=== PATIENT | female | born 2000 | race Caucasian/White ===

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

== ENCOUNTER 2022-02-27 10:15 | Emergency (ER) | payer BC, SELFPAY ==
[2022-02-27 10:37] VITALS: BP 133/91; PULSE 100; RESP 18; TEMP 36.7; O2SAT 96; BMI 37.6
--- NOTE | 2022-02-27 10:41 | HMH.EDUTC ---
[facility] [place]ression: Pilonidal abscess Disposition: Home, Self-Care Condition on Discharge: Good Instructions: Pilonidal Cyst, DI for Pilonidal Cyst Drainage or Removal Additional Instructions: *Start antibiotic(s) immediately and be sure to take as ordered for the FULL length of time although you may be feeling better or start to see improvement in the next 24-48 hours *Monitor closely. Outlined redness so that you can monitor easier. Follow up immediately for new or worsening symptoms including but not limited to redness, swelling, streaking from site fever or chills. *Warm compress 15 minutes 3-4 times day *Never squeeze or pop these on your own. Seek immediate medical attention next time this occurs *Monitor Temp. Tylenol every 4 hours as needed and ibuprofen every 6 hours as needed (as long as your primary care doctor has told you that it is ok to take both. For fever, aches, pain. ER if no less that 101 despite Tylenol and ibuprofen Follow up with your family doctor/primary care physician in the next 48-72 hours if no improvement Call Dr Tomlinson office in General Surgery for appointment for further evaluation and treatment Prescriptions: Sulfamethoxazole/Trimethoprim [Bactrim DS tablet] 1 each PO BID 10 Days #20 tab Transmission Status: Received by [id number] Mupirocin Calcium [Mupirocin 2% Cream 15gm] 1 applicatio TP TID 10 Days #15 gm Transmission Status: Received by [id number] Referrals: Osiris Mota PA [Primary Care Provider] - As needed Solo Morin MD [Staff Physician] - As needed Time of Disposition: 11:08 Medical Decision Making - Archie Inquiry Pt receiving controlled substance: No Archie was queried for this patient: No Vital Signs: 02/27/22 10:37 Temperature 98.0 F Temperature Source Oral Pulse Rate [Left Radial] 100 H Respiratory Rate 18 Blood Pressure [Right Arm] 133/91 H Blood Pressure Mean [Right Arm] 105 02 Sat by Pulse Oximetry 96 Orders (Tests/Meds): ORDERS Category Date Time Status Wound Culture and Gram Stain Stat Micro 02/27/22 10:52 [place] [facility] [place] - General Stated complaint: lower back pain Time Seen by Provider: 02/27/22 10:41 Description of Symptoms (Recalled from Triage Doc. by RN): patient comes in for a bump like place on the lower part of her back. above her crack. patient states it has been going on for 1 week HEENT Symptoms (Recalled from RN notes): No Resp Symptoms (Recalled from RN notes): No Skin Symptoms (Recalled from RN notes): Yes MS Symptoms (Recalled from RN notes): No Functional Status (Recalled from RN notes): wnl - History of Present Illness Provider Complaint: Patient states that she has had a knot like area in the top of her butt crack for about a week States that the area is tender to the touch and hurts when she tries to sit on that side or wipe States that today it was hurting so she came in to get it checked out - Related Data Home Medications Medication Instructions Recorded Confirmed fluoxetine 40 mg capsule 40 mg PO DAILY cap 10/31/21 10/31/21 hydroxyzine HCl 25 mg tablet 25 mg PO ONCE tab 10/31/21 10/31/21 Previous Rx's Medication Instructions Recorded etonogestrel 0.12 mg-ethinyl 1 vag ring VAGINAL Q4W #3 each 10/31/21 estradiol 0.015 mg/24 hr vaginal ring Mupirocin Calcium [Mupirocin 2% 1 applicatio TP TID 10 Days #15 gm 02/27/22 Cream 15gm] Sulfamethoxazole/Trimethoprim 1 each PO BID 10 Days #20 tab 02/27/22 [Bactrim DS tablet] Allergies Allergy/AdvReac Type Severity Reaction Status Date / Time No Known Allergies Allergy Verified 02/27/22 10:40 - Worker's Comp Is this a Worker's Comp case?: No [facility] History - Hepatitis A Screen Attestation statement:: This patient has been screened for Hepatitis A risk factors. I have reviewed the patient's past medical history: Yes Medical History: Reports:: Anxiety, Depression Other Surgeries: Yes: No Previous
[2022-02-27 11:24] VITALS: BP 133/91; PULSE 100; RESP 18; TEMP 36.7
== END 2022-02-27 11:25 | disposition home or self-care (01) ==
PROVIDERS: Emergency Provider Nurse Practitioner; PCP Physician Assistant
DX: L05.01 Pilonidal cyst with abscess (principal); M54.50 Low back pain, unspecified; F32.A Depression, unspecified; F41.9 Anxiety disorder, unspecified; Z82.49 Family history of ischemic heart disease and other diseases of the circulatory system; Z80.9 Family history of malignant neoplasm, unspecified
CPT/HCPCS: 87070; 87077; 87186; 87205; 99213; G0463

== ENCOUNTER → 2022-04-14 08:53 | Outpatient (CLI) | payer BC, SELFPAY ==
[2022-04-17 22:07] LABS: Neisseria gonorrhoeae, NAA Negative (Negative)
== END ==
PROVIDERS: Visit Provider Obstetrics & Gynecology
DX: Z11.3 Encounter for screening for infections with a predominantly sexual mode of transmission (principal)
CPT/HCPCS: 87491; 87591

== ENCOUNTER 2022-06-10 18:00 | Emergency (ER) | payer BC, SELFPAY ==
--- NOTE | 2022-06-10 18:18 | EXP.UTC ---
Discharge Plan Disposition Patient Disposition: Home, Self-Care Condition: Good Prescriptions Prescriptions: New cephalexin 500 mg capsule 500 mg PO QID Qty: 40 0RF No Action hydroxyzine HCl 25 mg tablet 25 mg PO ONCE Label Comments: TAKE 2 TABLETS BY MOUTH EVERY DAY AT BEDTIME fluoxetine 40 mg capsule 40 mg PO DAILY Label Comments: TAKE 1 CAPSULE BY MOUTH ONCE DAILY Referrals Follow up/Referrals: Provider,Referral, [Primary Care Provider] - See instructions Activity Restrictions/Add. Instructions Additional Instructions/Restrictions: Apply warm wet compresses to the affected site three or four times per day for 15 minutes as tolerated. Soaking in a tub of warm epsom salts water a couple times per day would be a good idea too. Take the antibiotics as directed. Follow up with your regular doctor. Follow up with General Surgery. I put in a referral to Dr. Johnson. Please call his office and schedule an appointment for a recheck there. GO TO THE ER FOR ANY WORSENING SYMPTOMS OR CONCERNS Clinical Impressions Clinical Impression: Pilonidal cyst Stand Alone Forms Stand Alone Forms: Work/School Release Instructions Patient Instructions: Pilonidal Cyst Discharge ED Provider: Yefri Walker [facility] General Stated complaint: bump on back Time Seen by Provider: 06/10/22 18:18 History of Present Illness Provider Complaint: She has a history of a pilonidal cyst. She had to have it drained about 4 months ago. she states that it has been fine up until yesterday. It began to be tender and start to swell then. She denies any fever, chills or malaise. Related Data Home Medications Medication Instructions Recorded Confirmed fluoxetine 40 mg capsule 40 mg PO DAILY 10/31/21 04/13/22 hydroxyzine HCl 25 mg tablet 25 mg PO ONCE 10/31/21 04/13/22 Previous Rx's Medication Instructions Recorded cephalexin 500 mg capsule 500 mg PO QID #40 caps 06/10/22 Allergies Allergy/AdvReac Type Severity Reaction Status Date / Time No Known Allergies Allergy Verified 04/13/22 13:14 [facility] Social History Smoking Status: Never smoker alcohol intake: never substance use type: denies use and marijuana current occupational status: student Travel in the last 8 weeks: None household members: family housing: house ROS Obtained: Yes All systems reviewed & no additional complaints except as documented Constitutional Constitutional: Reports system reviewed and no additional complaints, except as documented, Denies chills and Denies fever(s) Eyes Eyes: Denies eye discharge ENT Ears, Nose, Mouth, and Throat: Denies dysphagia, Denies sore throat and Denies throat swelling Cardiovascular Cardiovascular: Denies chest pain and Denies dyspnea Respiratory Respiratory: Denies chest congestion, Denies cough and Denies dyspnea Gastrointestinal Gastrointestingal: Denies abdominal pain, constipation, diarrhea, dysphagia, nausea or vomiting Musculoskeletal Musculoskeletal: Denies arthralgias Integumentary/Breasts Skin/Breast: Reports as per HPI Neurologic Neurologic: Denies paresthesias Allergic/Immunologic Allergic/Immunologic: Denies throat swelling Physical Exam General General appearance: alert and in no apparent distress Head Head exam: atraumatic, normocephalic and normal inspection Eye Eye exam: Present normal appearance, PERRL and EOMI ENT ENT exam: Present normal exam, normal oropharynx, mucous membranes moist, TM's normal bilaterally and normal external ear exam Neck Neck exam: Present normal inspection, full ROM and trachea midline; Absent meningismus or lymphadenopathy Chest Chest inspection: Present normal inspection and symmetric chest wall rise; Absent tenderness Respiratory Respiratory exam: Present normal lung sounds bilaterally; Absent respiratory distress Cardiovascular Cardiovascular exam: Present
[2022-06-10 18:20] VITALS: BP 116/85; PULSE 118; RESP 17; TEMP 37.3; O2SAT 96; BMI 35.7
[2022-06-10 18:37] VITALS: BP 116/85; PULSE 118; RESP 17; TEMP 37.3; O2SAT 96
== END 2022-06-10 18:39 | disposition home or self-care (01) ==
PROVIDERS: Emergency Provider Nurse Practitioner Family
DX: L05.91 Pilonidal cyst without abscess (principal)
CPT/HCPCS: 99212; G0463

== ENCOUNTER 2022-06-12 16:21 | Emergency (ER) | payer BC, SELFPAY ==
[2022-06-12 16:35] VITALS: BP 150/91; PULSE 100; RESP 20; TEMP 36.9; O2SAT 99; BMI 35.4
--- NOTE | 2022-06-12 16:55 | EXP.UTC ---
Discharge Plan Disposition Patient Disposition: Home, Self-Care Condition: Good Prescriptions Prescriptions: No Action hydroxyzine HCl 25 mg tablet 25 mg PO ONCE Label Comments: TAKE 2 TABLETS BY MOUTH EVERY DAY AT BEDTIME fluoxetine 40 mg capsule 40 mg PO DAILY Label Comments: TAKE 1 CAPSULE BY MOUTH ONCE DAILY Kyleena 17.5 mcg/24 hrs (5 yrs) 19.5 mg intrauterine device intrauterine cephalexin 500 mg capsule 500 mg PO QID Qty: 40 0RF Referrals Follow up/Referrals: Dylon Quiñonez MD [Primary Care Provider] - See instructions Activity Restrictions/Add. Instructions Additional Instructions/Restrictions: Continue with warm soaks in warm water and epson salt Continue taking antibiotics as prescribe *Warm compress 15 minutes 3-4 times day *Never squeeze or pop these on your own. Seek immediate medical attention next time this occurs *Monitor Temp. Tylenol every 4 hours as needed and ibuprofen every 6 hours as needed (as long as your primary care doctor has told you that it is ok to take both. For fever, aches, pain. ER if no less that 101 despite Tylenol and ibuprofen ?Follow up with your family doctor/primary care physician in the next 48-72 hours if no improvement Keep appointment with Surgical Clinic tomorrow as scheduled Tyelnol may help with pain Clinical Impressions Clinical Impression: Pilonidal cyst Stand Alone Forms Stand Alone Forms: Work/School Release Instructions Patient Instructions: Pilonidal Cyst, DI for Pilonidal Cyst Drainage or Removal Discharge ED Provider: Penny Rollins [facility] [place] HPI General Stated complaint: Bleeding cyst Mode of Arrival: Ambulatory Source of Information: Patient Limitations: No Limitations Time Seen by Provider: 06/12/22 16:56 Description of Symptoms (Recalled from Triage Doc. by RN): PATIENT C/O CYST TO GLUTEAL AREA. SHE WAS SEEN IN [facility] ON SATURDAY AND GIVEN ANTIBIOTICS. SHE REPORTS THAT AFTER GETTING OUT OF BATHTUB TODAY SHE NOTED BLEEDING/DRAINAGE FROM CYST AND ALSO C/O PAIN TO AREA. SHE STATES SHE DOES HAVE A CONSULT APPOINTMENT WITH SURGERY TOMORROW REGARDING THE CYST HEENT Symptoms (Recalled from RN notes): No Resp Symptoms (Recalled from RN notes): No Skin Symptoms (Recalled from RN notes): Yes MS Symptoms (Recalled from RN notes): No Functional Status (Recalled from RN notes): WNL History of Present Illness Provider Complaint: Patient states that she has been on antibiotics and has been doing soaks in tub of warm water and epson salt States that earlier after getting out of the tub she noticed bloody drainage from the area States that area is sore and hurting and she has been putting a bandage in there to catch the drainage States that she has appointment with Surgical clinic tomorrow for evaluation but wanted to see if she could get something to help with the pain until she sees them tomorrow Related Data Home Medications Medication Instructions Recorded Confirmed fluoxetine 40 mg capsule 40 mg PO DAILY 10/31/21 06/12/22 hydroxyzine HCl 25 mg tablet 25 mg PO ONCE 10/31/21 06/12/22 levonorgestrel 17.5 mcg/24 hrs intrauterine 06/12/22 06/12/22 (5yrs) 19.5mg intrauterine device (Kyleena) Previous Rx's Medication Instructions Recorded cephalexin 500 mg capsule 500 mg PO QID #40 caps 06/10/22 Allergies Allergy/AdvReac Type Severity Reaction Status Date / Time No Known Allergies Allergy Verified 06/12/22 09:53 Worker's Comp Is this a Worker's Comp case?: No [facility] Medical History (Updated 06/12/22 @ 17:09 by Penny Rollins APRN) Anxiety Depression Urinary tract infection Surgical History (Updated 06/12/22 @ 16:53 by Irene Matthews RN) History of tonsillectomy Social History (Updated 06/12/22 @ 16:54 by Irene Matthews RN) Smoking Status: Never smoker alcohol intake: never substance use type: denies use and marijuana current occupational status: student Travel in the last 8 we
[2022-06-12 17:18] VITALS: BP 150/91; PULSE 100; RESP 20; TEMP 36.9; O2SAT 99
== END 2022-06-12 17:41 | disposition home or self-care (01) ==
PROVIDERS: Emergency Provider Nurse Practitioner; PCP Family Medicine
DX: L05.91 Pilonidal cyst without abscess (principal); B95.7 Other staphylococcus as the cause of diseases classified elsewhere; B96.89 Other specified bacterial agents as the cause of diseases classified elsewhere; Z16.11 Resistance to penicillins; Z16.39 Resistance to other specified antimicrobial drug; F41.9 Anxiety disorder, unspecified; F32.A Depression, unspecified; Z87.440 Personal history of urinary (tract) infections
CPT/HCPCS: 87070; 87077; 87186; 87205; 96372; 99212; G0463

== ENCOUNTER 2022-08-30 18:03 | Emergency (ER) | payer BC, SELFPAY ==
[2022-08-30 19:55] VITALS: BP 131/86; PULSE 89; RESP 18; TEMP 36.7; O2SAT 98; BMI 39.5
--- NOTE | 2022-08-30 20:12 | EXP.UTC ---
Discharge Plan Disposition Patient Disposition: Home, Self-Care Condition: Good Prescriptions Prescriptions: New sulfamethoxazole-trimethoprim [Bactrim DS] 800-160 mg Tablet 1 tab PO BID Qty: 20 0RF cephalexin 500 mg capsule 500 mg PO QID Qty: 40 0RF mupirocin 2 % ointment 1 applic topical TID 7 Days Qty: 15 0RF No Action hydroxyzine HCl 25 mg tablet 25 mg PO ONCE Label Comments: TAKE 2 TABLETS BY MOUTH EVERY DAY AT BEDTIME fluoxetine 40 mg capsule 40 mg PO DAILY Label Comments: TAKE 1 CAPSULE BY MOUTH ONCE DAILY Referrals Follow up/Referrals: Brian Tena MD [Staff Physician] - See instructions Provider,MD Cristina [Primary Care Provider] - See instructions Activity Restrictions/Add. Instructions Additional Instructions/Restrictions: Apply warm wet compresses to the affected sites three or four times per day for 15 minutes as tolerated. Take the antibiotics as directed. Follow up with your regular doctor. Call the surgeon and get an appointment. A surgeon can remove this and make it not come back. That is what you need. GO TO THE ER FOR ANY WORSENING SYMPTOMS OR CONCERNS Clinical Impressions Clinical Impression: Pilonidal cyst Stand Alone Forms Stand Alone Forms: Work/School Release Instructions Patient Instructions: Pilonidal Cyst Discharge ED Provider: Yefri Walker [facility] General Stated complaint: bumb on lower back Mode of Arrival: Ambulatory Source of Information: Patient Limitations: No Limitations Time Seen by Provider: 08/30/22 20:12 Description of Symptoms (Recalled from Triage Doc. by RN): PATIENT C/O PAINFUL CYST TO TOP OF BUTTOCK AREA. SHE REPORTS IT HAS BEEN THERE INTERMITTENLY APPROX 9 MONTHS HEENT Symptoms (Recalled from RN notes): No Resp Symptoms (Recalled from RN notes): No Skin Symptoms (Recalled from RN notes): Yes MS Symptoms (Recalled from RN notes): No Functional Status (Recalled from RN notes): WNL History of Present Illness Provider Complaint: She has a history of a pilonidal cyst. She states that over the past few days it has began to swell up and become painful again. She did not f/u with surgery after the last time it was drained 3 months ago. Related Data Home Medications Medication Instructions Recorded Confirmed fluoxetine 40 mg capsule 40 mg PO DAILY Depression 10/31/21 08/30/22 hydroxyzine HCl 25 mg tablet 25 mg PO ONCE Anxiety 10/31/21 08/30/22 Previous Rx's Medication Instructions Recorded cephalexin 500 mg capsule 500 mg PO QID #40 caps 08/30/22 mupirocin 2 % topical ointment 1 applic topical TID 7 days #15 08/30/22 grams sulfamethoxazole 800 1 tab PO BID #20 tabs 08/30/22 mg-trimethoprim 160 mg tablet (Bactrim DS) Allergies Allergy/AdvReac Type Severity Reaction Status Date / Time No Known Allergies Allergy Verified 06/13/22 13:05 Worker's Comp Is this a Worker's Comp case?: No [facility] Disclaimer: The information contained in this section may have been updated after the patient was seen, as this information can be updated by other users. Medical History Anxiety Depression Hypertension Migraine Urinary tract infection Surgical History History of tonsillectomy Social History Smoking Status: Current every day smoker alcohol intake: current substance use type: marijuana current occupational status: student Travel in the last 8 weeks: None household members: family housing: house ROS Obtained: Yes All systems reviewed & no additional complaints except as documented Constitutional Constitutional: Denies chills and Denies fever(s) Eyes Eyes: Denies eye discharge ENT Ears, Nose, Mouth, and Throat: Denies dizziness, Denies otalgia and Denies sore throat Cardiovascular Cardiovascular: Denies jewell
[2022-08-30 20:57] VITALS: BP 131/86; PULSE 89; RESP 18; TEMP 36.7; O2SAT 98
== END 2022-08-30 21:00 | disposition home or self-care (01) ==
PROVIDERS: Emergency Provider Nurse Practitioner Family
DX: L05.91 Pilonidal cyst without abscess (principal)
CPT/HCPCS: 99212; G0463

== ENCOUNTER 2022-09-03 13:02 | Emergency (ER) | payer BC, SELFPAY ==
[2022-09-03 13:55] VITALS: BP 145/88; PULSE 78; RESP 18; TEMP 36.9; O2SAT 98; BMI 39.5
[2022-09-03 14:02] VITALS: BP 145/88; PULSE 78; RESP 18; TEMP 37.1; O2SAT 98
--- NOTE | 2022-09-03 14:51 | EXP.UTC ---
Discharge Plan Disposition Patient Disposition: Home, Self-Care Condition: Good Prescriptions Prescriptions: No Action hydroxyzine HCl 25 mg tablet 25 mg PO ONCE Label Comments: TAKE 2 TABLETS BY MOUTH EVERY DAY AT BEDTIME fluoxetine 40 mg capsule 40 mg PO DAILY Label Comments: TAKE 1 CAPSULE BY MOUTH ONCE DAILY sulfamethoxazole-trimethoprim [Bactrim DS] 800-160 mg Tablet 1 tab PO BID Qty: 20 0RF cephalexin 500 mg capsule 500 mg PO QID Qty: 40 0RF mupirocin 2 % ointment 1 applic topical TID 7 Days Qty: 15 0RF Referrals Follow up/Referrals: Provider,Referral, MD [Primary Care Provider] - See instructions Activity Restrictions/Add. Instructions Additional Instructions/Restrictions: Continue antibiotics as prescribed Follow up with General Surgery for further evaluation and treatment call tomorrow for first available appointment Return if needed Straight to ER if any life threatening symptoms Clinical Impressions Clinical Impression: Pilonidal abscess Instructions Patient Instructions: Pilonidal Cyst, DI for Pilonidal Cyst Drainage or Removal Discharge ED Provider: Penny Rollins [facility] HPI General Stated complaint: cyst on butt, Bleeding Mode of Arrival: Ambulatory Source of Information: Patient Limitations: No Limitations Time Seen by Provider: 09/03/22 14:51 Description of Symptoms (Recalled from Triage Doc. by RN): PATIENT C/O CYST TO BUTTOCK AREA. SHE WAS SEEN SATURDAY FOR IT AND STARTED ON ANTIBIOTIC. SHE STATES SHE WOKE UP THIS MORNING AND IT HAS BUSTED HEENT Symptoms (Recalled from RN notes): No Resp Symptoms (Recalled from RN notes): No Skin Symptoms (Recalled from RN notes): Yes MS Symptoms (Recalled from RN notes): No Functional Status (Recalled from RN notes): WNL History of Present Illness Provider Complaint: Patient has had hx of pilonidal abscess States that she is suppose to follow up with General Surgery and she did in May and wanted a second opinion but never follow up but her mother called today for appointment States that she has been seen several times for it and sometimes they have opened it and sometimes not States that she woke up this morning with it draining States that she wanted something for pain Related Data Home Medications Medication Instructions Recorded Confirmed fluoxetine 40 mg capsule 40 mg PO DAILY Depression 10/31/21 08/30/22 hydroxyzine HCl 25 mg tablet 25 mg PO ONCE Anxiety 10/31/21 08/30/22 Previous Rx's Medication Instructions Recorded cephalexin 500 mg capsule 500 mg PO QID #40 caps 08/30/22 mupirocin 2 % topical ointment 1 applic topical TID 7 days #15 08/30/22 grams sulfamethoxazole 800 1 tab PO BID #20 tabs 08/30/22 mg-trimethoprim 160 mg tablet (Bactrim DS) Allergies Allergy/AdvReac Type Severity Reaction Status Date / Time No Known Allergies Allergy Verified 06/13/22 13:05 Worker's Comp Is this a Worker's Comp case?: No [facility] Disclaimer: The information contained in this section may have been updated after the patient was seen, as this information can be updated by other users. Medical History Anxiety Depression Hypertension Migraine Urinary tract infection Surgical History History of tonsillectomy Social History (Updated 09/03/22 @ 14:01 by Irene Matthews RN) Smoking Status: Current every day smoker alcohol intake: current substance use type: marijuana current occupational status: student Travel in the last 8 weeks: None household members: family housing: house ROS Obtained: Yes All systems reviewed & no additional complaints except as documented and Yes Systems reviewed as appropriate & no additional complaints except as documented Constitutional Constitutional: Reports system reviewed and no additional complaints, except as documented and Reports as p
[2022-09-03 15:29] LABS: UTC Pregnancy Test, Urine Negative (Negative)
== END 2022-09-03 15:54 | disposition home or self-care (01) ==
PROVIDERS: Emergency Provider Nurse Practitioner
DX: L05.91 Pilonidal cyst without abscess (principal)
CPT/HCPCS: 81025; 96372; 99212; G0463

== ENCOUNTER 2023-11-17 18:14 | Emergency (ER) | payer BC, SELFPAY ==
[2023-11-17 18:35] VITALS: BP 136/89; PULSE 84; RESP 19; TEMP 37.2; O2SAT 98; BMI 42.6
[2023-11-17 18:42] LABS: Apearance,Urine Clear (Clear); Color,Urine Yellow (Yellow)
[2023-11-17 18:43] LABS: Bilirubin,Urine Negative (Negative); Blood, Urine Trace (Negative); Glucose,Urine (UA) Negative (Negative); Ketones,Urine Negative (Negative); Protein,Urine Negative (Negative); UTC Leukocyte Esterase,Urine Negative (Negative); UTC Nitrate,Urine Negative (Negative); UTC Pregnancy Test, Urine Negative (Negative); Urobilinogen,Urine 0.2 EU/dl (0.2)
--- NOTE | 2023-11-17 18:57 | ED_ITS ---
Discharge Plan Disposition Patient Disposition: Home, Self-Care Condition: Good Prescriptions Prescriptions: No Action hydroxyzine HCl 25 mg tablet 25 mg PO ONCE Patient Comments: TAKE 2 TABLETS BY MOUTH EVERY DAY AT BEDTIME fluoxetine 40 mg capsule 40 mg PO DAILY Patient Comments: TAKE 1 CAPSULE BY MOUTH ONCE DAILY Referrals Follow up/Referrals: Dylon Quiñonez MD [Primary Care Provider] - See instructions Activity Restrictions/Add. Instructions Additional Instructions/Restrictions: Drink extra fluids with and between meals. If you have difficulty drinking, try very small amounts of water or suck on ice chips. ? Avoid fruit juices, as these do not replace minerals and can actually increase diarrhea. ? Children and adults can use sports drinks to replenish electrolytes. Y elm[place]mon[place] children and infants should use products formulated for children, like oral rehydration solutions. ? Eat food in small amounts and let your stomach recover. ? Get lots of rest. You may feel tired or weak. ? No greasy or fried foods for the next 24-48 hours BRAT diet Bananas Rice Apples and [place] ? Make sure to drink plenty of liquids ? Return if needed ? Straight to ER if any life threatening symptoms ? Follow up with family doctor in the next 48-72 hours if no improvement or any worsening of symptoms Clinical Impressions Clinical Impression: Nausea & vomiting Qualifiers: Vomiting type: unspecified Qualified Code(s): R11.2 - Nausea with vomiting, unspecified Stand Alone Forms Stand Alone Forms: Work/School Release Instructions Patient Instructions: Nausea and Vomiting-Adult Discharge ED Provider: Penny Rollins [facility] General Stated complaint: stomach pain,vomiting Mode of Arrival: Ambulatory Source of Information: Patient Limitations: No Limitations Time Seen by Provider: 11/17/23 18:57 Description of Symptoms (Recalled from Triage Doc. by RN): PATIENT C/O STOMACH ACHES AND VOMITING X 3 DAYS HEENT Symptoms (Recalled from RN notes): No Resp Symptoms (Recalled from RN notes): No Skin Symptoms (Recalled from RN notes): No MS Symptoms (Recalled from RN notes): No Functional Status (Recalled from RN notes): WNL History of Present Illness Provider Complaint: Patient states that for the last 3 days she has had N/V and stomach discomfort States she last vomited last night but this morning her stomach was still upset and she wasnt able to go to work needing a work note States that she does have nausea medication at home and doesnt need any Related Data Home Medications Medication Instructions Recorded Confirmed fluoxetine 40 mg capsule 40 mg PO DAILY Depression 10/31/21 11/17/23 hydroxyzine HCl 25 mg tablet 25 mg PO ONCE Anxiety 10/31/21 11/17/23 Allergies Allergy/AdvReac Type Severity Reaction Status Date / Time No Known Allergies Allergy Verified 06/13/22 13:05 Worker's Comp Is this a Worker's Comp case?: No [facility] Disclaimer: The information contained in this section may have been updated after the patient was seen, as this information can be updated by other users. Medical History Anxiety Depression Hypertension Migraine Urinary tract infection Surgical History History of tonsillectomy Social History (Updated 09/03/22 @ 14:01 by Irene Matthews RN) Smoking Status: Current every day smoker alcohol intake: current substance use type: marijuana current occupational status: student Travel in the last 8 weeks: None household members: family housing: house ROS Obtained: Yes All systems reviewed & no additional complaints except as documented and Yes Systems reviewed as appropriate & no additional complaints except as documented Constitutional Constitutional: Reports system reviewed and no additional complaints, except as documented, Reports as per HPI and Denies fever(s) ENT Ears, Nose, Mouth, and Throat: Reports system reviewed and no additional complaints, except as documented and Reports as per HPI Cardiovascular Cardiovascular: Reports system reviewed and no additional complaints, except as documented and Reports as per HPI Respiratory Respiratory: Reports system reviewed and no additional complaints, except as documented and Reports as per HPI Gastrointestinal Gastrointestingal: Reports system reviewed and no additional complaints, except as documented, as per HPI, cramping, nausea and vomiting; Denies belching, coffee ground emesis, diarrhea, hematochezia or melena Physical Exam General General appearance: alert and in no apparent distress ENT ENT exam: Present mucous membranes moist Respiratory Respiratory exam: Present normal lung sounds bilaterally; Absent respiratory distress or wheezes Cardiovascular Cardiovascular exam: Present regular rate, normal rhythm and normal heart sounds Abdominal Exam Abdominal exam: Present soft and normal bowel sounds; Absent distention or tenderness Neurological Exam Neurological exam: Present alert, oriented X3 and normal gait Medical Decision Making Archie Inquiry Pt receiving controlled substance: No Archie was queried for this patient: No Vital Signs: 11/17/23 18:35 Temperature 98.9 F Temperature Source Oral Pulse Rate [Left Brachial] 84 Respiratory Rate 19 Blood Pressure [Left Arm] 136/89 Blood Pressure Mean [Left Arm] 104 Blood Pressure Source [Left Arm] Automatic Cuff Blood Pressure Position [Left Arm] Sitting 02 Sat by Pulse Oximetry 98 Oxygen Delivery Method Room Air Lab Data Lab results reviewed: Yes I reviewed the patient's lab results. Lab Results 11/17/23 18:42: Urine Color Yellow, Urine Appearance Clear, Urine pH 6.0, Ur Specific [place] 1.030, Urine Protein Negative, Urine Glucose (UA) Negative, Urine Ketones Negative, Urine Blood Trace, Urine Nitrate Negative, Urine Bilirubin Negative, Urine Urobilinogen 0.2, Ur Leukocyte Esterase Negative, Tst Clinic Negative
[2023-11-17 19:06] VITALS: BP 136/89; PULSE 84; RESP 19; TEMP 37.2; O2SAT 98
== END 2023-11-17 19:14 | disposition home or self-care (01) ==
PROVIDERS: Emergency Provider Nurse Practitioner; PCP Family Medicine
DX: R10.9 Unspecified abdominal pain (principal); R11.2 Nausea with vomiting, unspecified
CPT/HCPCS: 81003; 81025; 99212; 99213; G0463

== ENCOUNTER 2024-06-18 16:26 | Outpatient (CLI) | payer BC, SELFPAY ==
[2024-06-18 17:00] LABS: Basophils % 0.3 % (0.1-2.0); Eosinophils # 0.1 K/mm3 (0.0-0.4); Eosinophils % 0.9 % (0.1-12.0); Hematocrit 39.7 % (37.0-47.0); Lymphocytes # 1.9 K/mm3 (0.7-4.5); Lymphocytes % 20.8 % (10-50); Mean Corpuscular HGB Conc 32.7 g/dL (31.8-35.4); Mean Platelet Volume 8.1 fl (7.4-10.4); Monocytes # 0.4 K/mm3 (0.1-1.0); Monocytes % 4.3 % (1.7-9.3); Neutrophils # 6.9 K/mm3 (1.8-7.8); Neutrophils % 73.7 % (37.0-80.0); Platelet Count 311 K/mm3 (142-424); Red Blood Count 4.18 M/mm3 (4.20-5.40); Red Cell Distribution Width 13.6 % (11.5-17.5); White Blood Count 9.4 K/mm3 (4.8-10.8)
[2024-06-18 17:23] LABS: Chloride 103 mmol/L (98-107)
[2024-06-18 17:24] LABS: Albumin Level 4.7 g/dl (3.5-5.0); Potassium 3.9 mmoL/L (3.5-5.1); Sodium 138 mmol/L (136-145)
[2024-06-18 17:26] LABS: Alanine Aminotransferase 59 U/L (12-78); Anion Gap 12.9 mEq/L (5-15); Aspartate Amino Transferase 47 U/L (14-36); Blood Urea Nitrogen 8 mg/dl (7-17); Carbon Dioxide 26 mmol/L (22.0-30.0); Estimated Glomerular Filt Rate 126 ml/min (>60); GFR (African American) 153 ML/MIN (>60)
[2024-06-18 17:27] LABS: Alkaline Phosphatase 78 U/L (38-126); Bilirubin,Total 0.8 mg/dl (0.2-1.3); Calcium 9.5 mg/dl (8.4-10.2); Globulin 2.3 g/dL (1.3-3.2); Glucose 88 mg/dl (74-100)
[2024-06-18 20:47] LABS: Thyroid Stimulating Hormone 0.58 uIU/mL (0.465-4.68)
[2024-06-20 15:34] LABS: Deamidated Gliadin Abs, IgA 3 units (0-19); Deamidated Gliadin Abs, IgG 1 units (0-19); Tissue Transglutaminase IgA Ab <2 U/mL (0-3); Tissue Transglutaminase IgG Ab <2 U/mL (0-5)
[2024-06-22 12:15] LABS: F001-IgE Egg White <0.10 kU/L (Class 0); F002-IgE Milk <0.10 kU/L (Class 0); F003-IgE Codfish <0.10 kU/L (Class 0); F004-IgE Wheat <0.10 kU/L (Class 0); F010-IgE Sesame Seed <0.10 kU/L (Class 0); F013-IgE Peanut <0.10 kU/L (Class 0); F014-IgE Soybean <0.10 kU/L (Class 0); F024-IgE Shrimp <0.10 kU/L (Class 0); F256-IgE Walnut <0.10 kU/L (Class 0); F338-IgE Scallop <0.10 kU/L (Class 0)
[2024-06-22 18:20] LABS: Endomysial IgA Antibody Negative (Negative)
[2024-06-24 08:20] LABS: Reticulin IgA Antibody Negative titer (Neg:<1:2.5)
== END 2024-06-18 23:59 | disposition home or self-care (01) ==
LOC: LAB 16:26
PROVIDERS: PCP Physician Assistant; Visit Provider Physician Assistant
DX: R10.13 Epigastric pain (principal)
CPT/HCPCS: 36415; 80050; 80053; 83516; 84443; 85025; 86003; 86008; 86255; 86256

== ENCOUNTER 2025-03-09 14:23 | Outpatient (CLI) | payer BC, SELFPAY ==
--- OUTSIDE RECORDS SUMMARY | 2024-10-23 06:00 | XMS_ITS ---
[facility] [address] [place] [id number] Care Team Providers Care Control Clerk Subassembly Name Role Phone Latesha Burgess Primary Care Provider Osiris Mota Unavailable [phone] Allergies No Known Allergies Reason For Referral Diagnosis 1 Dyspepsia (R10.13) [facility] Referring Provider First Name Osiris Referring Provider Last Name Nakul Referring Provider Speciality Physician English Language Learner Tutor Referred Provider Gastroenterology, . Referred Provider Specialty [...] [address] [place] [phone] 10/23/2024 Osiris Crowsebastien Depression with anxi ety [...] BRII DE LA ROSAHDOB:2000 (24 yo F)Acc No.[id number]:10/23/2024 Progress Notes Patient: MOLLY AARON Provider: ANGELA Mayer :2000 A ge:23 Y S ex:Female Date:10/23/2024 Address:[place], [id number] Pcp:Laetsha Burgess Subjective: * Chief Complaints: * 1 [...] Intolerant. * Surgical History: t eeth 09/2007, [place] Teeth 09/2018. * Hospitalization/Major Diagno stic Procedure: F ever- [facility] ER 07/28/2007, Abdominal Pain- [facility] ER 03/12/2009, cyst removed 11/2022. * Family [...] Temp:97.7, BP:120/72, HR:74, O2 Sat:97% on RA, Nurse:[facility], Ht: 67.50, BMI:33.02. * Examination: P [...] Weeks * Billing Information: * Visit Code: 51666 Office Visit, Est Pt., Level 3. * Procedure Codes: * Electronic signature of ANGELA Bingham on 03/09/2025 at 02:27 PM EDT Sign off status: Pending * Provider: ANGELA Mayer Date: 0 10/23/2024 Generated for Johanny harris/Irene/Mariamitting on: 0 03/09/2025 02:27 PM EDT History and Physical Notes * [...]
--- OUTSIDE RECORDS SUMMARY | 2024-11-13 12:00 | XMS_ITS ---
Author Organization [facility] Address [address] [facility] [address] [place] [phone] Care Team Providers Care Veneer Drier Feeder Name Role Phone Latesha Burgess Primary Care Provider [phone] Osiris Mota Unavailable [phone] Allergies No Known Allergies REASON FOR VISIT [...] Problem Status W/U Status Risk Notes Problem [id number] 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) Active confirmed Vital Signs Blood pressure systolic 118 mm Hg 11/13/19 25 Blood pressure diastolic 66 mm Hg 025 Heart Rate 72 /min 11/13/2024 Height 67.50 in 11/13/2024 Weight 218.0 lbs 11/13/2024 BMI 33.64 kg/m2 11/13/2024 Encounters Encounter Location Date Provider Diagnosis [facility] [address] [place] [phone] 11/13/2024 Osiris Mota Depression with anxi ety [...] BRII DE LA ROSAHDOB:2000 (24 yo F)Acc No.[id number]:11/13/2024 Patient: MASHA AARONAEH Provider: ANGELA Mayer :2000 A ge:23 Y S ex:Female Date:11/13/2024 Address: [id number] Pcp:Latesha Burgess Subjective: * Chief Complaints: * [...] Intolerant. * Surgical History: t eeth 09/2007, [place] Teeth 09/2018. * Hospitalization/Major Diagno stic Procedure: F ever- [facility] ER 07/28/2007, Abdominal Pain- [facility] ER 03/12/2009, cyst removed 11/2022. * Family [...] Temp:97.7, BP:118/66, HR:72, O2 Sat:98% on RA, Nurse:[facility], Ht: 67.50, BMI:33.64. * Examination: P sychology: [...] Weeks * Billing Information: * Visit Code: 44729 Office Visit, Est Pt., Level 3. * Procedure Codes: 91406 PULSE OX. 3074F SYST BP LT 130 MM HG. 3078F DIAST BP < 80 MM HG. * Electronic signature of ANGELA Bingham on 03/09/2025 at 02:26 PM EDT Sign off status: Pending * Provider: ANGELA Mayer Date: 0 11/13/2024 Generated for Johanny harris/Irene/eTransmitting on: 0 03/09/2025 02:26 PM EDT History and Physical Notes * [...]
--- OUTSIDE RECORDS SUMMARY | 2024-12-04 12:00 | XMS_ITS ---
Author Organization [facility] Address [address] [facility] [address] [facility] [address] [place] [phone] Care Team Providers Care Business Rules Analyst Name Role Phone Latesha Burgess Primary Care Provider Osiris Mota [phone] REASON FOR VISIT 3 week f/u Encounters Encounter Location Date Provider Diagnosis [facility] [address] [facility] [address] [facility] [address] [place] [phone] 12/04/2024 Osiris Mota Plan Of Treatment No Information Progress Notes * YANELIS DE LA ROSAOB:2000 (24 yo F)Acc No.[id number]:12/04/2024 Progress Notes Patient: MOLLY AARON Provider: ANGELA Mayer :2000 A ge:24 Y S ex:Female Date:12/04/2024 Address:[id number] Pcp:Latesha Burgess Subjective: * Chief Complaints: * 1 . 3 week f/u. * Medical History: Objective: * Vitals: Assessment: Plan: * Treatment: * Billing Information: * Visit Code: * Procedure Codes: * Electronic signature of ANGELA Bingham on 03/09/2025 at 02:27 PM EDT Sign off status: Pending * Provider: ANGELA Mayer Date: 12/04/2024 Generated for Printi ng/Faxing/eTransmitting on: 03/09/2025 02:27 PM EDT
--- OUTSIDE RECORDS SUMMARY | 2025-03-09 14:27 | XMS_ITS | Clinical Summary ---
Author Organization [facility] Address [address] [place] [address] Care Team Providers Care Special Education Case Manager Name Role Phone Dylon Quiñonez MD Primary Care Provider [phone] Allergies No known active allergies Medications hydrOXYzine HCl (Atarax) 25 MG tablet TAKE 2 TABLETS BY MOUTH EVERY DAY AT BEDTIME 2 Active FLUoxetine (PROzac) 40 MG capsule Take 40 mg by mouth every night. 2 Active levonorgestrel (Mirena) 20 MCG/DAY IUD 1 each by Intrauterine route 1 (one) time. Active acetaminophen (Tylenol) 325 MG tablet Take 2 tablets (650 mg total) by mouth every 6 (six) hours if needed for pain, headaches or fever. 100 tablet 3 Active ibuprofen 400 MG tablet Take 400 mg by mouth every 6 (six) hours if needed for moderate pain. Active albuterol 108 (90 Base) MCG/ACT inhaler INHALE 2 PUFFS BY MOUTH EVERY 4 HOURS NEEDED FOR COUGH, WHEEZE OR SHORTNESS OF BREATH 3 Active fluticasone (Flonase) 50 MCG/ACT nasal spray USE 2 SPRAY(S) IN EACH NOSTRIL ONCE DAILY 3 Active cetirizine (ZyrTEC) 10 MG tablet Take 10 mg by mouth 1 (one) time each day. 3 Active Riboflavin (Vitamin B-2) 100 MG tablet Take 1 tablet (100 mg) by mouth 1 (one) time each day. Active Active Problems Problem Noted Date Diagnosed Date Morbid obesity 11/23/2022 HTN (hypertension) 11/23/2022 Gastroesophageal reflux disease 11/23/2022 Pilonidal cyst 11/07/2022 Overview (11/07/2022): Added automatically from request for surgery [id number] Anxiety Depression Family History Medical History Relation Name Comments Heart disease Father Heart disease Mother Relation Name Status Comments Father Mother Social History Tobacco Use Types Packs/Day Years Used Date Smoking Tobacco: Former Cigarettes 0.5 4.3 2 019 - 01/2023 Passive Smoke Exposure: Current Smokeless Tobacco: Never Tobacco Cessation:Counseling Given: Not Answered Alcohol Use Standard Drinks/Week Comments Yes 1 (1 standard drink = 0.6 oz pur e alcohol) social PHQ-2 Answer Date Recorded Patient Health Questionnaire-2 Score 2 02/06/2023 PHQ-9 Answer Date Recorded Patient Health Questionnaire-9 Score 24 10/03/2022 PHQ-2A Answer Date Recorded Depression Risk 6 10/03/2022 PHQ-9A Answer Date Recorded Depression Risk Score 26 10/03/2022 Comments No Sex and Gender Information Value Date Recorded Sex Assigned at Female 11/23/2022 9:43 AM EST Legal Sex Female 7:28 PM EDT Gender Identity Female 11/23/2022 9:43 AM EST Sexual Orientation Not on file Last Filed Vital Signs Vital Sign Reading Time Taken Comments Blood Pressure 150/85 02/06/2023 4:09 PM EDT Pulse 89 02/06/2023 4:09 PM EDT Temperature 35.9 C (96.6 F) 02/06/2023 4:09 PM EDT Respiratory Rate 18 02/06/2023 4:09 PM EDT Oxygen Saturation 97% 11/23/2022 2:30 PM EST Inhaled Oxygen Concentration - - Weight 122 kg (270 lb) 02/06/2023 4:09 PM EDT Height 175.3 cm (5' 9 ) 02/06/2023 4:09 PM EDT Body Mass Index 39.87 02/06/2023 4:09 PM EDT Plan of Treatment Health Maintenance Due Date Last Done Comments [facility]-HIV Screening 2002 [facility]-Hepatitis C Screening 2002 [facility]-Infant/Child/Adol SDOH Screenings 2002 [facility]-IPV Vaccines (2 of 3 - 4-dose series) 01/01/2007 12/04/2006 [facility]-Varicella Vaccines (2 of 2 - 2-dose childhood series) 06/28/2015 04/05/2015 [facility]- SDOH Screenings 2020 [facility]-Adult SDOH Screenings 2020 [facility]-Hepatitis B Vaccines (1 of 3 - 19+ 3-dose series) 2021 [facility]-Pap Smear 11/28/2023 [facility]-Depression Screening 02/07/2024 023, 10/03/2022, 10/03/2022, Additional history exists CBN-[id number]-82 Vaccine ( - 2023- season) 2024 04/09/2021, 03/12/2021 [facility]-DTaP,Tdap,and Td Vaccines (4 - Td or Tdap) 04/05/2025 04/05/2015, 12/04/2006, 03/17/2004 [facility]-Influenza Vaccine (Season Ended) 2025 05/26/2012, 08/02/2011, 08/04/2010, Additional history exists [facility]-Zoster Vaccines (1 of 2) 2052 04/05/2015 [facility]-Hepatitis A Vaccines Completed 018, 12/17/2017, 12/04/2006 HPV Vaccines Completed 04/22/2019, 05/2018, 12/17/2017 [facility]-Obesity Intervention Completed 023, 01/02/2023, 12/19/2022, Additional history exists [facility]-HIB Vaccines Aged Out No longer e ligible based on patient's age to complete this topic [facility]-Pneumococcal Vaccine: Pediatrics (0 to 5 Years) and At-Risk Patients (6 to 49 Years) Aged Out No longer eligible based on patient's age to complete this topic [facility]-Rotavirus Vaccines Aged Out No lo nger eligible based on patient's age to complete this topic Insurance [employer]IS[employer] Care Teams Special Education Case Manager Relationship Specialty Start Date End Date Dylon Quiñonez MD [address] [place] [address] PCP - General 10/03/22
--- OUTSIDE RECORDS SUMMARY | 2025-03-09 14:27 | XMS_ITS | Patient Health Record ---
Author Organization [facility] Address [address] [place] [id number] Care Team Providers Care Sheet Metal Insulator Name Role Phone Latesha Burgess Primary Care Provider Osiris Mota Unavailable [phone] Allergies No Known Allergies Results Component Value Reference Range Notes H-CELIAC PANEL Reviewed date:06/24/2024 02:03:06 PM Interpretation:Negative Performing Lab: Notes/Report: TISTRANSIGA <2 0-3 U/mL Negative 0 - 3 Weak Positive 4 - 10 Positive >10 Tissue Transglutaminase (tTG) has been identified as the endomysial antigen. Studies have demonstr- ated that endomysial IgA antibodies have over 99% specificity for gluten sensitive enteropathy. TISTRANSIGG <2 0-5 U/mL Negative 0 - 5 Weak Positive 6 - 9 Positive >9 Performed at: [facility] [id number] Playroom Attendant: Steffen Maddox PhD, Phone: [phone] ENDIGA Negative Negative Performed at: [facility] [id number] Playroom Attendant: Steffen Maddox PhD, Phone: [phone] RETIGA Negative Neg:<1:2.5 titer IgA class reticulin antibodies are specific for celiac disease and occur in 60% of patients with active disease. Results for this test are for research purposes only by the assay's supervisor keymodule assembly. The performance characteristics of this product have not been established. Results should not be used as a diagnostic procedure without confirmation of the diagnosis by another medically established diagnostic product or procedure. Performed at: [facility] [id number] Playroom Attendant: Amy Villafana MD, Phone: [phone] GLIAD IGA 3 0-19 units Negative 0 - 19 Weak Positive 20 - 30 Moderate to Strong Positive >30 GLIAD IGG 1 0-19 units Negative 0 - 19 Weak Positive 20 - 30 Moderate to Strong Positive >30 H-Food Allergy Profile Reviewed date:06/24/2024 02:02:56 PM Interpretation:Negative Performing Lab: Notes/Report: CLASSDESC Comment . Levels of Specific IgE Class Description of Class ----- < 0.10 0 Negative 0.10 - 0.31 0/I Equivocal/Low 0.32 - 0.55 I Low 0.56 - 1.40 II Moderate 1.41 - 3.90 III High 3.91 - 19.00 IV Very High 19.01 - 100.00 V Very High >100.00 Very High EGGWHT <0.10 Class 0 kU/L MILK <0.10 Class 0 kU/L CODFISH <0.10 Class 0 kU/L WHEAT <0.10 Class 0 kU/L CORN <0.10 Class 0 kU/L PEANUT <0.10 Class 0 kU/L SOYBEAN <0.10 Class 0 kU/L SHRIMP <0.10 Class 0 kU/L CLAM <0.10 Class 0 kU/L WALNUT <0.10 Class 0 kU/L SCALLOP <0.10 Class 0 kU/L SESAMEP <0.10 Class 0 kU/L Performed at: [facility] [address] [id number] Playroom Attendant: Amy Villafana MD, Phone: [phone] H-CMP Reviewed date:06/19/2024 08:01:16 AM Interpretation: Performing Lab: Notes/Report: NA 138 136-145 mmol/L K 3.9 3.5-5.1 mmoL/L CL 103 98-107 mmol/L CO2 26 22.0-30.0 mmol/L GAP 12.9 5-15 mEq/L BUN 8 7-17 mg/dl CREATT 0.60 0.52-1.04 mg/dl GFRAA 153 >60 ML/MIN EGFR 126 >60 ml/min GLU 88 74-100 mg/dl CA 9.5 8.4-10.2 mg/dl BILIT 0.8 0.2-1.3 mg/dl AST 47 14-36 U/L ALT 59 12-78 U/L TP 7.0 6.3-8.2 g/dl ALB 4.7 3.5-5.0 g/dl GLOB 2.3 1.3-3.2 g/dL AGRATIO 2.0 1.1-1.8 ALP 78 38-126 U/L H-CBC Reviewed date:06/19/2024 08:01:16 AM Interpretation: Performing Lab: Notes/Report: WBC 9.4 4.8-10.8 K/mm3 RBC 4.18 4.20-5.40 M/mm3 HGB 13.0 12.2-16.2 g/dL HCT 39.7 37.0-47.0 % MCV 95.0 81-99 fl MCH 31.0 27.0-31.2 pg MCHC 32.7 31.8-35.4 g/dL RDW 13.6 11.5-17.5 % PLT 311 142-424 K/mm3 MPV 8.1 7.4-10.4 fl NE% 73.7 37.0-80.0 % LY% 20.8 10-50 % MO% 4.3 1.7-9.3 % EO% 0.9 0.1-12.0 % BA% 0.3 0.1-2.0 % NE# 6.9 1.8-7.8 K/mm3 LY# 1.9 0.7-4.5 K/mm3 MO# 0.4 0.1-1.0 K/mm3 EO# 0.1 0.0-0.4 K/mm3 BA# 0.0 0-0.2 K/mm3 H-TSH Reviewed date:06/19/2024 08:01:16 AM Interpretation: Performing Lab: Notes/Report: TSH 0.58 0.465-4.68 uIU/mL Medications Medication SIG (Take, Route, Frequency, Duration) Notes Start Date End Date Status hydrOXYzine HCl 25 MG 1 tab orally 4 kisha es a day, prn 10/05/2021 Active Albuterol Sulfate HFA 108 (90 Base) MCG/ACT 1 puff as needed Inhalation every 4 hrs, prn 11/13/2024 Active Venlafaxine HCl ER 37.5 MG 1 capsule wit h food Orally Once a day for 30 day(s) 11/13/2024 Active Immunizations Vaccine Route Administration Date Status Comme nts COVID 19 Moderna Unknown 03/12/2021 Administered COVID 19 Moderna Unknown 04/09/2021 Administered Gardasil 9 IM Intramuscular 12/17/2017 Administered Gardasil 9 IM Intramuscular 06/24/2018 Administered Gardasil 9 IM Intramuscular 04/22/2019 Administered Hep A- Pediatric IM Intramuscular 12/17/2017 Administered Hep A- Pediatric IM Intramuscular 09/05/2018 Administered IPV Unknown 12/04/2006 Administered Menactra IM Intramuscular 04/05/2015 Administered Menactra IM Intramuscular 04/22/2019 Administered MMR Unknown 03/17/2004 Administered MMR Unknown 12/04/2006 Administered Tetanus Tdap-Adacel (over 7yrs) IM Intramuscular 04/05/2015 Administered Varivax SC Subcutaneous 04/05/2015 Administered xFlu shot-36 months and older IM Intramuscular 08/01/2007 Administered xFlu shot-36 months and older IM Intramuscular 08/04/2010 Administered xFlu shot-36 months and older IM Intramuscular 08/02/2011 Administered xFlumist (intranasally age 2yr-49yr)-trivalent IN intranasal 07/13/2009 Administered xFluzone (6mos and older)-trivalent IM Intramuscular 05/26/2012 Administered Problems Problem Type SNOMED Code ICD Code Onset Dates Problem Status W/U Status Risk Notes Problem Attention deficit hyperactivity disorder (304884108) Attention deficit hyperactivity disorder (314.01) Active confirmed Problem Altered mental status (609818571) ALTERED MENTAL STATUS (780.97) Active confirmed Problem 105158546 Depression with anxiety (F41.8) Active confirmed Problem 733557856 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) Active confirmed Problem Sleep disorder (53847463) Sleep disorder (G47.9) Active confirmed Problem 107999898 Gastroesophageal reflux disease, unspecified whether esophagitis present (K21.9) Active confirmed Vital Signs Heart Rate 72 /min 11/13/2024 Blood pressure diastolic 66 mm Hg 11/13/2024 Height 67.50 in 11/13/2024 Blood pressure systolic 118 mm Hg 11/13/2024 Weight 218.0 lbs 11/13/2024 BMI 33.64 kg/m2 11/13/2024 Encounters Encounter Location Date Provider [facility] [address] [place] [phone] 06/18/2024 Osiris Crowdy Dyspepsia R10.13 ; Gastroesophageal reflux disease, unspecified whether esophagitis present K21.9 and Depression with anxiety F41.8 [facility] [address] [place] [phone] 10/23/2024 Osiris Crowdy Depression with anxi ety F41.8 and Dyspepsia R10.13 [facility] [address] [place] [id number] 11/13/2024 Osiris Crowdy Depression with anxi ety F41.8 and Exercise induced bronchospasm J45.990 [facility] [address] [place] [id number] 06/19/2024 Osiris Crowdy [facility] [address] [place] [address] [place] [id number] 12/03/2024 Latesha Burgess Depression with anxi ety F41.8 Assessments Encounter Date Diagnosis (ICD Code) Assessment Notes Treatment Notes Treatment Clinical Notes Section Notes 06/18/2024 Dyspepsia (ICD-10 - R10.13) 06/18/2024 Gastroesophageal reflux disease, unspecified whether esophagitis present (ICD-10 - K21.9) 10/23/2024 Depression with anxiety (ICD-10 - F41.8) 10/23/2024 Dyspepsia (ICD-10 - R10.13) 11/13/2024 Depression with anxiety (ICD-10 - F41.8) 11/13/2024 Exercise induced bronchospasm (ICD-10 - J45.990) 12/03/2024 Depression with anxiety (ICD-10 - F41.8) 06/18/2024 Depression with anxiety (ICD-10 - F41.8) Patient is going to go down to [facility] office and have the genetic testing done and schedule an appt to go over results. Plan Of Treatment No Information Insurance Providers Payer Name Payer Address Payer Phone Subscriber Number Group Number Insured Name Patient Relationship to Insured Coverage Start Date Coverage End Date [employer] [address] [place] [address] [id number] MOLLY DE LA ROSA Self - patient is the insured Medical (General) History Medical History History ICD Code Gluten Intolerant Surgical History Surgery Date(Month/Year) teeth 09/2007 [facility] 09/2018 Hospitalization History Reason Date(Month/Year) Fever- [facility] ER 07/28/2007 Abdominal Pain- [facility] ER 03/12/2009 cyst removed 11/2022
[2025-03-09 15:08] LABS: HCG,Quantitative 311 mIU/ml (0-5.42)
[2025-03-10 08:28] LABS: Progesterone 11.7 ng/mL (.)
== END 2025-03-09 23:59 | disposition home or self-care (01) ==
LOC: LAB 14:24
PROVIDERS: Visit Provider Nurse Practitioner Obstetrics & Gynecology
DX: Z32.01 Encounter for pregnancy test, result positive (principal)
CPT/HCPCS: 36415; 84144; 84702

== ENCOUNTER 2025-03-10 14:30 | Emergency (ER) | payer SELFPAY ==
--- OUTSIDE RECORDS SUMMARY | 2024-10-23 06:00 | XMS_ITS ---
[facility] Address [address] [place] [id number] Care Team Providers Care Dishtank Operator Name Role Phone Latesha Burgess Primary Care Provider [phone] Osiris Mota Unavailable [phone] Allergies No Known Allergies Reason For Referral Diagnosis 1 Dyspepsia (R10.13) [facility] Referring Provider First Name Osiris Referring Provider Last Name Nakul Referring Provider Speciality Physician Cut Off Machine Unloader Referred Provider Gastroenterology, . Referred Provider Specialty [...] MG 1 capsule Orally Onc e a day for 30 day(s) 10/23/2024 Active Vital Signs Blood pressure systolic 120 mm Hg 10/23/19 25 Blood pressure diastolic 72 mm Hg 025 Heart Rate 74 /min 10/23/2024 Height 67.50 in 10/23/2024 Weight 214.0 lbs 10/23/2024 BMI 33.02 kg/m2 10/23/2024 Encounters Encounter Location Date Provider Diagnosis [facility] [address] [place] [id number] 10/23/2024 Osiris Crowsebastien Depression with anxi ety F41.8 and Dyspepsia [...] MG 1 capsule Orally Onc e a day for 30 day(s) 10/23/2024 Referrals Referral Date Details 10/23/2024 10/23/2024, . Gastro enterology Next Appt Details Follow Up: 3 Weeks, Reason: Progress Notes * BRII DE LA ROSAHDOB:2000 (24 yo F)Acc No.[id number]:10/23/2024 Progress Notes Patient: MOLLY AARON Provider: ANGELA Mayer :2000 A ge:23 Y S ex:Female Date:10/23/2024 Address:[place], [id number] Pcp:Latesha Burgess Subjective: * Chief Complaints: * [...] Intolerant. * Surgical History: t eeth 09/2007, [place] Teeth 09/2018. * Hospitalization/Major Diagno stic Procedure: F ever- [facility] ER 07/28/2007, Abdominal Pain- [facility] ER 03/12/2009, cyst removed 11/2022. * Family [...] Temp:97.7, BP:120/72, HR:74, O2 Sat:97% on RA, Nurse:[facility], Ht: 67.50, BMI:33.02. * Examination: P sychology: General Appearance: N AD. Grooming : a dequate. Eye contact : n ormal. Mood : p leasant. Heart: R SR. Lungs: c lear to auscultation. Abdomen: bowel sounds present, soft and nontender. Neurologic Exam: I ntact, gait normal. ? Assessment: * Assessment: 1. D epression with anxiety - F41.8 (Primary) 2 . D yspepsia - R10.13 ? Plan: * Treatment: 2. D yspepsia Referral To:. Gastroenterology Gastroenterology Reason: * Follow Up: 3 Weeks * Billing Information: * Visit Code: 22463 Office Visit, Est Pt., Level 3. * Procedure Codes: * Electronic signature of ANGELA Bingham on 03/10/2025 at 02:43 PM EDT Sign off status: Pending * Provider: ANGELA Mayer Date: 0 10/23/2024 Generated for Johanny harris/Irene/Mariamitting on: 0 03/10/2025 02:43 PM EDT History and Physical Notes * HPI [...]
--- OUTSIDE RECORDS SUMMARY | 2024-11-13 12:00 | XMS_ITS ---
Author Organization [facility] Address [address] [facility] [address] [place] [phone] Care Team Providers Care Retail Office Manager Name Role Phone Latesha Burgess Primary Care Provider Osiris Mota Unavailable [phone] Allergies No Known Allergies REASON FOR VISIT 3 week f/u Medications Medication SIG (Take, Route, Frequency, Duration) Notes Start Date End Date Status Venlafaxine HCl ER 37.5 MG 1 capsule wit h food Orally Once a day for 30 day(s) 11/13/2024 Active hydrOXYzine HCl 25 MG 1 tab orally 4 kisha es a day, prn 10/05/2021 Active Albuterol Sulfate HFA 108 (90 Base) MCG/ACT 1 puff as needed Inhalation every 4 hrs, prn 11/13/2024 Active Problems Problem Type SNOMED Code ICD Code Onset Dates Problem Status W/U Status Risk Notes Problem [id number] 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) Active confirmed Vital Signs Blood pressure systolic 118 mm Hg 11/13/19 25 Blood pressure diastolic 66 mm Hg 025 Heart Rate 72 /min 11/13/2024 Height 67.50 in 11/13/2024 Weight 218.0 lbs 11/13/2024 BMI 33.64 kg/m2 11/13/2024 Encounters Encounter Location Date Provider Diagnosis [facility] [address] [place] [phone] 11/13/2024 Osiris Mota Depression with anxi ety [...] capsule wit h food Orally Once a day for 30 day(s) 11/13/2024 hydrOXYzine HCl 25 MG 1 tab orally 4 kisha es a day, prn 10/05/2021 Albuterol Sulfate HFA 108 (9 0 Base) MCG/ACT 1 puff as needed Inhalation every 4 hrs, prn 11/13/2024 PROzac 10 MG 1 capsule Orally Once a day 10/23/2024 Next Appt Details Follow Up: 3 Weeks, Reason: Progress Notes * BRII DE LA ROSAHDOB:2000 (24 yo F)Acc No.[id number]:11/13/2024 Patient: MASHA AARONAEH Provider: ANGELA Mayer :2000 A ge:23 Y S ex:Female Date:11/13/2024 Address: [id number] Pcp:Latesha Burgess Subjective: * Chief Complaints: * [...] Intolerant. * Surgical History: t eeth 09/2007, [place] Teeth 09/2018. * Hospitalization/Major Diagno stic Procedure: F ever- [facility] ER 07/28/2007, Abdominal Pain- [facility] ER 03/12/2009, cyst removed 11/2022. [...] Temp:97.7, BP:118/66, HR:72, O2 Sat:98% on RA, Nurse:[facility], Ht: 67.50, BMI:33.64. * Examination: P sychology: General Appearance: N AD. Grooming : a dequate. Eye contact : n ormal. Mood : p leasant. Heart: R SR. Lungs: c lear to auscultation. Neurologic Exam: I ntact, gait normal. ? [...] HG * Follow Up: 3 Weeks * Billing Information: * Visit Code: 00527 Office Visit, Est Pt., Level 3. * Procedure Codes: 53555 PULSE OX. 3074F SYST BP LT 130 MM HG. 3078F DIAST BP < 80 MM HG. * Electronic signature of ANGELA Bingham on 03/10/2025 at 02:42 PM EDT Sign off status: Pending * Provider: ANGELA Mayer Date: 0 11/13/2024 Generated for Johanny harris/Irene/eTransmitting on: 0 03/10/2025 02:42 PM EDT History and Physical Notes * [...]
--- NOTE | 2025-03-10 14:34 | HMH.EDGENADL ---
Discharge Plan Disposition Patient Disposition: Home, Self-Care Condition: Good Prescriptions Prescriptions: No Action hydroxyzine HCl 25 mg tablet 25 mg PO ONCE Patient Comments: TAKE 2 TABLETS BY MOUTH EVERY DAY AT BEDTIME venlafaxine 37.5 mg capsule,extended release 24hr PO Referrals Follow up/Referrals: Dylon Quiñonez MD [Primary Care Provider, Medical] - See instructions Activity Restrictions/Add. Instructions Additional Instructions/Restrictions: You have an appointment with Dr. Woodall on 03-12-2025 at 2:15 PM. If you have any new or worsening signs or symptoms please return to the emergency department. Clinical Impressions Clinical Impression: IUD failure, Print Language Print Language: Mongolian Discharge ED Provider: Nery Samuels General Adult HPI <ANGELA Paulson - Last Filed: 03/10/25 16:59> General Chief complaint: Recheck/Abnormal Lab/Rx Stated complaint: 2 pos home preg tests-IUD implanted Time Seen by Provider: 03/10/25 14:34 History of Present Illness HPI narrative: Patient presents for evaluation. Patient has an IUD [place] back [place] [address] Hinojosa of [employer] [facility]. Patient reports that she has been having symptoms and has taken 2 home test that were positive. She has a new [employer] ADMINISTRATOR appointment scheduled with Dr. Oates in March however he is on vacation thus she came to the ER for assistance. She denies any vaginal bleeding/spotting abdominal cramping has nausea and vomiting but no diarrhea fever chills hemoptysis hematochezia melena hematemesis hematuria dysuria. Related Data Home Medications ?Medication ?Instructions ?Recorded ?Confirmed hydroxyzine HCl 25 mg tablet 25 mg PO ONCE Anxiety 10/31/21 01/11/25 venlafaxine 37.5 mg mg PO 01/11/25 01/11/25 capsule,extended release 24 hr Allergies Allergy/AdvReac Type Severity Reaction Status Date / Time No Known Allergies Allergy Verified 02/09/25 16:21 PFSH <ANGELA Paulson - Last Filed: 03/10/25 16:59> [facility] Disclaimer: The information contained in this section may have been updated after the patient was seen, as this information can be updated by other users. Medical History Migraine Hypertension Depression Anxiety Urinary tract infection Surgical History History of tonsillectomy Social History Smoking Status: Current every day smoker alcohol intake: current substance use type: marijuana current occupational status: student Travel in the last 8 weeks?: None household members: family housing: house Other Medical History Have you received the Flu Vaccine for this season: No Have you received the Pneumonia Vaccine: No <ANGELA Paulson - Last Filed: 03/10/25 16:59> ROS Obtained: Yes Systems reviewed as appropriate & no additional complaints except as documented Physical Exam <ANGELA Paulson - Last Filed: 03/10/25 16:59> General General appearance: alert and in no apparent distress Respiratory Respiratory exam: Present normal lung sounds bilaterally Cardiovascular Cardiovascular exam: Present regular rate Neurological Exam Neurological exam: Present alert and oriented X3 Medical Decision Making <ANGELA Paulson - Last Filed: 03/10/25 16:59> Medical Records Medical records reviewed: Yes I reviewed the patient's medical records. Screening: Per USPSTF and CDC recommendations, given the prevalence of disease in our region, it is our hospital?s policy to screen for HIV and viral Hepatitis for all patients aged 18 and over and those with ongoing risk factors. Archie Inquiry Pt receiving controlled substance: No Vital Signs: 03/10/25 14:42 03/10/25 14:52 03/10/25 15:30 Temperature 98.6 F 98.6 F Temperature Source Oral Oral Pulse Rate 95 H 82 Pulse Rate [Right] 95 H Respiratory Rate 16 16 Blood Pressure 141/72 H Blood Pressure [Right Arm] 141/72 H Blood Pressure Mean [Right Arm] 95 Blood Pressure Source Automatic Cuff Blood Pressure Source [Right Arm] Automatic Cuff Blood Pressure Position Supine Blood Pressure Position [Right Arm] Supine 02 Sat by Pulse Oximetry 95 95 100 Oxygen Delivery Method Room Air Room Air 03/10/25 16:04 03/10/25 16:59 Temperature 98.4 F Temperature Source Oral Pulse Rate 66 73 Pulse Rate [Right] Respiratory Rate 16 Blood Pressure 131/65 131/65 Blood Pressure [Right Arm] Blood Pressure Mean [Right Arm] Blood Pressure Source Automatic Cuff Blood Pressure Source [Right Arm] Blood Pressure Position Sitting Blood Pressure Position [Right Arm] 02 Sat by Pulse Oximetry 100 Oxygen Delivery Method Room Air Lab Data Lab results reviewed: Yes I reviewed the patient's lab results. Lab Results 03/10/25 14:36: Urine Color Yellow, Urine Appearance Clear, Urine pH 6.0, Ur Specific Chappell 1.025, Urine Protein Trace, Urine Glucose (UA) Negative, Urine Ketones Trace, Urine Blood 1+ A, Urine Nitrate Negative, Urine Bilirubin Negative, Urine Urobilinogen 0.2, Ur Leukocyte Esterase Trace, Urine RBC None, Urine WBC Occasional, Ur Squamous Epith Cells Occasional, Urine Bacteria Trace, Urine HCG, Qual Positive 03/10/25 15:06: HCG, Quant 457 H, HCV Ab BRANDON w/Rflx PCR Qn Negative, HIV Ag/Ab Combo Qual Negative Orders (Tests/Meds): ORDERS Category Date Time Status HCG,Quantitative Stat Lab 03/10/25 15:06 Completed HIV Combo Stat Lab 03/10/25 15:06 Completed Hepatitis C Ab Qual. W/ RFX Stat Lab 03/10/25 15:06 Completed UA [Urinalysis and Microscopic] Stat Lab 03/10/25 14:36 Completed Urine , HCG Qual. Stat Lab 03/10/25 14:36 Completed US OB transvaginal Stat Ultrasound 03/10/25 15:19 Completed Medical Decision Narrative: In summary patient is a 24-year-old female who presents to the emergency department for evaluation of positive home and the presence of an IUD. Patient is hemodynamically stable upon arrival, afebrile. Physical exam is unremarkable nonfocal including no abdominal tenderness no rebound or guarding no rigidity. Bowel sounds normal active.. Differential diagnosis includes intrauterine versus IUD misplacement versus ectopic etc. Initial workup will be conducted with urine test and if positive confirmatory with quantitative hCG and transvaginal ultrasound to rule out ectopic. Initial interventions are considered however patient has no symptoms to treat currently thus deferred. Initial workup reviewed by me and her urine test was positive her quantitative hCG was 457 and transvaginal ultrasound reported an gestational sac in the uterine space and a position IUD. Given this I consulted BENEFITS ADMINISTRATOR who came down and spoke with the patient. Plan is for the patient to be followed up in the office on Saturday at 2:15 in the afternoon. Patient is appropriate for discharge with the aforementioned follow-up and strict return precautions. <Fabiano Miguel MD - Last Filed: 03/11/25 07:25> Vital Signs: 03/10/25 14:42 03/10/25 14:52 03/10/25 15:30 Temperature 98.6 F 98.6 F Temperature Source Oral Oral Pulse Rate 95 H 82 Pulse Rate [Right] 95 H Respiratory Rate 16 16 Blood Pressure 141/72 H Blood Pressure [Right Arm] 141/72 H Blood Pressure Mean [Right Arm] 95 Blood Pressure Source Automatic Cuff Blood Pressure Source [Right Arm] Automatic Cuff Blood Pressure Position Supine Blood Pressure Position [Right Arm] Supine 02 Sat by Pulse Oximetry 95 95 100 Oxygen Delivery Method Room Air Room Air 03/10/25 16:04 03/10/25 16:59 Temperature 98.4 F Temperature Source Oral Pulse Rate 66 73 Pulse Rate [Right] Respiratory Rate 16 Blood Pressure 131/65 131/65 Blood Pressure [Right Arm] Blood Pressure Mean [Right Arm] Blood Pressure Source Automatic Cuff Blood Pressure Source [Right Arm] Blood Pressure Position Sitting Blood Pressure Position [Right Arm] 02 Sat by Pulse Oximetry 100 Oxygen Delivery Method Room Air Lab Data Lab Results 03/10/25 14:36: Urine Color Yellow, Urine Appearance Clear, Urine pH 6.0, Ur Specific Chappell 1.025, Urine Protein Trace, Urine Glucose (UA) Negative, Urine Ketones Trace, Urine Blood 1+ A, Urine Nitrate Negative, Urine Bilirubin Negative, Urine Urobilinogen 0.2, Ur Leukocyte Esterase Trace, Urine RBC None, Urine WBC Occasional, Ur Squamous Epith Cells Occasional, Urine Bacteria Trace, Urine HCG, Qual Positive 03/10/25 15:06: HCG, Quant 457 H, HCV Ab BRANDON w/Rflx PCR Qn Negative, HIV Ag/Ab Combo Qual Negative Orders (Tests/Meds): ORDERS Category Date Time Status HCG,Quantitative Stat Lab 03/10/25 15:06 Completed HIV Combo Stat Lab 03/10/25 15:06 Completed Hepatitis C Ab Qual. W/ RFX Stat Lab 03/10/25 15:06 Completed UA [Urinalysis and Microscopic] Stat Lab 03/10/25 14:36 Completed Urine , HCG Qual. Stat Lab 03/10/25 14:36 Completed US OB transvaginal Stat Ultrasound 03/10/25 15:19 Completed Medical Decision Narrative: In summary patient is a 24-year-old female who presents to the emergency department for evaluation of positive home and the presence of an IUD. Patient is hemodynamically stable upon arrival, afebrile. Physical exam is unremarkable nonfocal including no abdominal tenderness no rebound or guarding no rigidity. Bowel sounds normal active.. Differential diagnosis includes intrauterine versus IUD misplacement versus ectopic etc. Initial workup will be conducted with urine test and if positive confirmatory with quantitative hCG and transvaginal ultrasound to rule out ectopic. Initial interventions are considered however patient has no symptoms to treat currently thus deferred. Initial workup reviewed by me and her urine test was positive her quantitative hCG was 457 and transvaginal ultrasound reported an gestational sac in the uterine space and a position IUD. Given this I consulted BENEFITS ADMINISTRATOR who came down and spoke with the patient. Plan is for the patient to be followed up in the office on Saturday at 2:15 in the afternoon. Patient is appropriate for discharge with the aforementioned follow-up and strict return precautions. I was consulted by the EDUARDO, and we discussed the complexity of the problems being addressed. I approved the treatment and management plan for this patient's care in the Emergency Department, thus performing a substantive portion of the medical decision making. Fabiano Miguel MD Critical Care <ANGELA Paulson - Last Filed: 03/10/25 16:59> Critical Care Time Critical Care Time: No
[2025-03-10 14:41] LABS: Microscopic, Urine URINE MICROSCOPIC (MICROSCOPIC)
[2025-03-10 14:42] VITALS: BP 141/72; PULSE 95; RESP 16; TEMP 37; O2SAT 95; BMI 35.4
[2025-03-10 14:44] LABS: Appearance,Urine CLEAR (Clear); Blood, Urine 1+ (Negative); Color,Urine YELLOW (Yellow); Glucose,Urine (UA) Negative (Negative); Ketones,Urine TRACE (Negative); Leukocyte Esterase,Urine TRACE (Negative); Nitrate,Urine Negative (Negative); Protein,Urine TRACE (Negative); Specific Gravity, Urine 1.025 (1.005-1.030); Urobilinogen,Urine 0.2 EU/dl (0.2)
[2025-03-10 14:52] VITALS: BP 141/72; PULSE 95; RESP 16; TEMP 37; O2SAT 95
[2025-03-10 15:02] LABS: Bilirubin,Urine Negative (Negative)
[2025-03-10 15:10] LABS: Urine Pregnancy, HCG Qual. Positive (Negative)
--- NOTE | 2025-03-10 15:19 | US_ITS ---
PROCEDURE INFORMATION: Exam: US , Transvaginal Exam date and time: 03/10/2025 3:37 PM Age: 24 years old Clinical indication: Pain; Other: with iud; Gestational age or lmp: 4w5d; ; Additional info: Positive test with iud in place TECHNIQUE: Imaging protocol: Real-time transvaginal obstetrical ultrasound of the maternal pelvis with image documentation. Transvaginal imaging was used for better evaluation of the fetus, adnexa, and/or cervix. COMPARISON: No relevant prior studies available. FINDINGS: Gestation: No yolk sac. No pole. BIOMETRY: Gestational age (AUA): 4 w 5 d Estimated due date (AUA): 11/12/2025 Mean sac diameter: 0.23 cm. MATERNAL: Uterus: IUD appears low-lying at the cervix. Right ovary/adnexa: Right ovary measures 3.13 cm x 1.16 cm x 1.53 cm. Right ovarian volume is 2.91 mL. Right ovary appears within normal limits. Left ovary/adnexa: Left ovary measures 3.38 cm x 2.5 cm x 2.94 cm. Left ovarian volume is 13.01 mL. Left ovary appears within normal limits. Intraperitoneal space: Small volume free fluid. IMPRESSION: 1. Probable small early gestational sac without yolk sac or pole. Please note pseudo gestational sac within the setting of ectopic gestation is not excluded. 2. IUD appears low-lying at the cervix.
[2025-03-10 15:24] LABS: WBC,Urine Occasional #/hpf (0-3)
[2025-03-10 15:25] LABS: Bacteria,Urine Trace /lpf; Squamous Epithelial Cell,Urine Occasional #/hpf (0-5)
[2025-03-10 15:30] VITALS: PULSE 82; O2SAT 100
--- NOTE | 2025-03-10 15:32 | PC.NURSE ---
pt to US via wheelchair
[2025-03-10 15:59] LABS: HCG,Quantitative 457 mIU/ml (0-5.42)
[2025-03-10 16:04] VITALS: BP 131/65; PULSE 66; O2SAT 100
--- NOTE | 2025-03-10 16:30 | PC.NURSE ---
DR GUAMAN from OB at bedside
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
[2025-03-10 16:56] LABS: Hepatitis C Ab Qual. W/ RFX NEGATIVE (Negative)
[2025-03-10 16:59] VITALS: BP 131/65; PULSE 73; RESP 16; TEMP 36.9; O2SAT 98
[2025-03-10 22:05] LABS: HIV Combo NEGATIVE (Negative)
== END 2025-03-10 17:00 | disposition home or self-care (01) ==
PROVIDERS: Emergency Medicine; Physician Assistant; Emergency Provider Emergency Medicine; PCP Family Medicine
DX: T83.31XA Breakdown (mechanical) of intrauterine contraceptive device, initial encounter (principal); Z33.1 Pregnant state, incidental; Z91.414 Personal history of adult intimate partner abuse
CPT/HCPCS: 76817; 81001; 81025; 84702; 86803; 87389; 99284

== ENCOUNTER 2025-03-23 15:18 | Outpatient (CLI) | payer BC, SELFPAY ==
--- OUTSIDE RECORDS SUMMARY | 2024-10-23 06:00 | XMS_ITS ---
[facility] Address [address] [place] [phone] Care Team Providers Care Carbon Capture Power Plant Manager Name Role Phone Latesha Burgess Primary Care Provider Osiris Mota Unavailable [phone] Allergies No Known Allergies Reason For Referral Diagnosis 1 Dyspepsia (R10.13) [facility] Referring Provider First Name Osiris Referring Provider Last Name Nakul Referring Provider Speciality Physician Diabetologist Referred Provider Gastroenterology, . Referred Provider Specialty Gastroentero logy General Notes sOiris Mota 2024 10:32:47 AM > patient needs [...] Duration: 30 day(s) 10/23/2024 Active Vital Signs Weight 214.0 lbs 10/23/2024 Blood pressure systolic 120 mm Hg 10/23/19 25 Blood pressure diastolic 72 mm Hg 025 Heart Rate 74 /min 10/23/2024 Height 67.50 in 10/23/2024 BMI 33.02 kg/m2 10/23/2024 Encounters Encounter Location Date Provider Diagnosis [facility] [address] [place] [id number] 10/23/2024 Osiris Mota Depression with anxi ety [...] BRII DE LA ROSAHDOB:2000 (24 yo F)Acc No.[id number]:10/23/2024 Progress Notes Patient: MOLLY AARON Provider: ANGELA Mayer :2000 A ge:23 Y S ex:Female Date:10/23/2024 Address:[place], [id number] Pcp:Latesha Burgess Subjective: * Chief Complaints: * [...] Intolerant. * Surgical History: t eeth 09/2007, [place] Teeth 09/2018. * Hospitalization/Major Diagno stic Procedure: F ever- [facility] ER 07/28/2007, Abdominal Pain- [facility] ER 03/12/2009, cyst removed 11/2022. * [...] Temp:97.7, BP:120/72, HR:74, O2 Sat:97% on RA, Nurse:[facility], Ht: 67.50, BMI:33.02. * Examination: P [...] * Images: Billing Information: * Visit Code: 60903 Office Visit, Est Pt., Level 3. * Procedure Codes: * Electronic signature of ANGELA Bingham on 03/23/2025 at 03:20 PM EDT Sign off status: Pending * Provider: ANGELA Mayer Date: 0 10/23/2024 Generated for Johanny harris/Irene/Katiesmitting on: 0 03/23/2025 03:20 PM EDT History and Physical Notes * [...]
--- OUTSIDE RECORDS SUMMARY | 2024-11-13 12:00 | XMS_ITS ---
Author Organization [facility] Address [address] [facility] [address] [place] [phone] Care Team Providers Care City Treasurer Name Role Phone Latesha Burgess Primary Care Provider [phone] Osiris Mota Unavailable [phone] Allergies No Known Allergies REASON FOR VISIT [...] Status Risk Notes Problem Exercise induced bronchospasm (467386126) 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) Active confirmed Vital Signs Weight 218.0 lbs 11/13/2024 Blood pressure systolic 118 mm Hg 11/13/19 25 Blood pressure diastolic 66 mm Hg 025 Heart Rate 72 /min 11/13/2024 Height 67.50 in 11/13/2024 BMI 33.64 kg/m2 11/13/2024 Encounters Encounter Location Date Provider Diagnosis [facility] [address] [place] [id number] 11/13/2024 Osiris Mota Depression with anxi ety [...] BRII DE LA ROSAHDOB:2000 (24 yo F)Acc No.[id number]:11/13/2024 Patient: Maria Alejandra RAYAMOLLY ACOSTA Provider: ANGELA Mayer :2000 A ge:23 Y S ex:Female Date:11/13/2024 Address:[place], [id number] Pcp:Latesha Burgess Subjective: * Chief Complaints: * [...] Intolerant. * Surgical History: t eeth 09/2007, [place] Teeth 09/2018. * Hospitalization/Major Diagno stic Procedure: F ever- [facility] ER 07/28/2007, Abdominal Pain- [facility] ER 03/12/2009, cyst removed 11/2022. * Family [...] Temp:97.7, BP:118/66, HR:72, O2 Sat:98% on RA, Nurse:[facility], Ht: 67.50, BMI:33.64. * Examination: P [...] * Images: Billing Information: * Visit Code: 98019 Office Visit, Est Pt., Level 3. * Procedure Codes: 40237 PULSE OX. 3074F SYST BP LT 130 MM HG. 3078F DIAST BP < 80 MM HG. * Electronic signature of ANGELA Bingham on 03/23/2025 at 03:20 PM EDT Sign off status: Pending * Provider: ANGELA Mayer Date: 0 11/13/2024 Generated for Johanny harris/Irene/Katiesmitting on: 0 03/23/2025 [...]
--- OUTSIDE RECORDS SUMMARY | 2024-12-04 12:00 | XMS_ITS ---
Author Organization [facility] Address [address] [facility] [address] [facility] [address] [place] [phone] Care Team Providers Care Clerical Production Worker Name Role Phone Latesha Burgess Primary Care Provider Osiris Mota [phone] REASON FOR VISIT 3 week f/u Encounters Encounter Location Date Provider Diagnosis [facility] [address] [facility] [address] [facility] [address] [place] [phone] 12/04/2024 Osiris Mota Plan Of Treatment No Information Progress Notes * YANELIS DE LA ROSAOB:2000 (24 yo F)Acc No.[id number]:12/04/2024 Progress Notes Patient: MOLLY AARON Provider: ANGELA Mayer :2000 A ge:24 Y S ex:Female Date:12/04/2024 Address:[id number] Pcp:Latesha Burgess Subjective: * Chief Complaints: * 1 . 3 week f/u. * Medical History: Objective: * Vitals: Assessment: Plan: * Treatment: * Images: Billing Information: * Visit Code: * Procedure Codes: * Electronic signature of ANGELA Bingham on 03/23/2025 at 03:20 PM EDT Sign off status: Pending * Provider: ANGELA Mayer Date: 12/04/2024 Generated for Printi ng/Faxing/eTransmitting on: 0 03/23/2025 03:20 PM EDT
--- NOTE | 2025-03-23 15:00 | US_ITS ---
PROCEDURE: US OB <= 14 WEEKS FETUS CLINICAL INDICATION: Viability/dates COMPARISON: US US OB TRANSVAGINAL from 03/10/2025 FINDINGS: Transvaginal sonographic images of the pelvis were obtained. Her last menstrual period is unknown. An intrauterine gestational sac is present with a pole with a crown-rump length of 0.36cm This correlates to a gestational age of 6weeks 1day. NEIL will be 11/15/2025 heart tones are present with an FHR of 106bpm. Yolk sac is noted. The yolk sac measures 5.0mm. The right ovary is seen and appears normal. There are multiple small follicles. Left ovary is not visualized. There is no fluid in the cul-de-sac. An IUD is no longer apparent in the lower uterine segment/cervix. IMPRESSION: 1. Viable embryo within the uterine cavity. Cardiac activity is seen. 2. The embryo measures 6 weeks 1 day and NEIL will be 11/15/2025. 3. The previously described IUD is no longer present within the lower uterine segment/cervix. 4. Right ovary is seen and has multiple small follicles. The left ovary is not visualized. 5. No fluid in the cul-de-sac. Dictated by: Arie Castro MD 03/23/2025 16:50 Arie Castro MD in OV 03/23/2025 16:50
--- OUTSIDE RECORDS SUMMARY | 2025-03-23 15:20 | XMS_ITS | Patient Health Record ---
Author Organization [facility] Address [address] [place] [id number] Care Team Providers Care Electric Pile Driver Operator Name Role Phone Latesha Burgess Primary Care Provider [phone] Osiris Mota Unavailable [phone] Allergies No Known Allergies Results Component Value Reference Range Notes H-TSH Reviewed date:06/19/2024 08:01:16 AM Interpretation: Performing Lab: Notes/Report: TSH 0.58 0.465-4.68 uIU/mL H-CBC Reviewed date:06/19/2024 08:01:16 AM Interpretation: Performing [...] 0.1 0.0-0.4 K/mm3 BA# 0.0 0-0.2 K/mm3 H-CMP Reviewed date:06/19/2024 08:01:16 AM Interpretation: Performing [...] AGRATIO 2.0 1.1-1.8 ALP 78 38-126 U/L H-CELIAC PANEL Reviewed date:06/24/2024 02:03:06 PM Interpretation:Negative [...] 6 - 9 Positive >9 Performed at: [facility] [employer] [id number] Cleaning Custodian: Steffen Maddox PhD, Phone: [phone] ENDIGA Negative Negative Performed at: [address] [id number] Cleaning Custodian: Steffen Maddox PhD, Phone: [phone] RETIGA Negative Neg:<1:2.5 titer IgA class reticulin antibodies are specific for celiac disease and occur in 60% of patients with active disease. Results for this test are for research purposes only by the assay's program director air talent. The performance characteristics of this product have not been established. Results should not be used as a diagnostic procedure without confirmation of the diagnosis by another medically established diagnostic product or procedure. Performed at: [facility] [address] [id number] Cleaning Custodian: Amy Villafana MD, Phone: [phone] GLIAD IGA 3 0-19 units Negative 0 [...] SESAMEP <0.10 Class 0 kU/L Performed at: [facility] [address] [id number] Cleaning Custodian: Amy Villafana MD, Phone: [phone] Medications Medication SIG (Take, Route, Frequency, Duration) [...] a day; Duration: 30 day(s) 11/13/2024 Active Immunizations Vaccine Route [...] Risk Notes Problem Attention deficit hyperactivity disorder (857059526) Attention deficit hyperactivity disorder (314.01) Active confirmed Problem Altered mental status (776191176) ALTERED MENTAL STATUS (780.97) Active confirmed Problem Mixed anxiety and depressive disorder (717943131) Depression with anxiety (F41.8) Active confirmed Problem Exercise induced bronchospasm (007145258) 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) Active confirmed Problem Sleep disorder (64257748) Sleep disorder (G47.9) Active confirmed Problem Gastroesophageal reflux disease (716399519) Gastroesophageal reflux disease, unspecified whether esophagitis present (K21.9) Active confirmed Vital Signs Heart Rate 72 /min 11/13/2024 Blood pressure diastolic 66 mm Hg 11/13/2024 Height 67.50 in 11/13/2024 Blood pressure systolic 118 mm Hg 11/13/2024 Weight 218.0 lbs 11/13/2024 BMI 33.64 kg/m2 11/13/2024 Encounters Encounter Location Date Provider [facility] [address] [place] [phone] 06/18/2024 Osiris Crowdy Dyspepsia R10.13 ; Gastroesophageal reflux disease, unspecified whether esophagitis present K21.9 and Depression with anxiety F41.8 [facility] [address] [place] [phone] 10/23/2024 Osiris Crowdy Depression with anxi ety F41.8 and Dyspepsia R10.13 [facility] [address] [place] [id number] 11/13/2024 Osiris Crowdy Depression with anxi ety F41.8 and Exercise induced bronchospasm J45.990 [facility] [address] [place], [place] [phone] 06/19/2024 [facility]is Crowdy [facility] [address] [place], [place] [phone] 12/03/2024 Latesha Burgess Depression with anxi ety F41.8 Assessments Encounter Date Diagnosis (ICD Code) Assessment Notes Treatment Notes Treatment Clinical Notes Section Notes 10/23/2024 Depression with anxiety (ICD-10 - F41.8) 10/23/2024 Dyspepsia (ICD-10 - R10.13) 11/13/2024 Depression with anxiety (ICD-10 - F41.8) 11/13/2024 Exercise induced bronchospasm (ICD-10 - J45.990) 12/03/2024 Depression with anxiety (ICD-10 - F41.8) 06/18/2024 Dyspepsia (ICD-10 - R10.13) 06/18/2024 Gastroesophageal reflux disease, unspecified whether esophagitis present (ICD-10 - K21.9) 06/18/2024 Depression with anxiety (ICD-10 - F41.8) Patient is going to go down to [facility] office and have the genetic testing done and schedule an appt to go over results. Plan Of Treatment No Information Insurance Providers Payer Name Payer Address Payer Phone Subscriber Number Group Number Insured Name Patient Relationship to Insured Coverage Start Date Coverage End Date [employer] [facility] [address] [place] [address] [id number] MOLLY DE LA ROSA Self - patient is the insured Medical (General) History Medical History History ICD Code Gluten Intolerant Surgical History Surgery Date(Month/Year) teeth 09/2007 [place] [facility] 09/2018 Hospitalization History Reason Date(Month/Year) Fever- [facility] ER 07/28/2007 Abdominal Pain- [facility] ER 03/12/2009 cyst removed 11/2022
--- OUTSIDE RECORDS SUMMARY | 2025-03-23 15:20 | XMS_ITS | Clinical Summary ---
Author Organization [facility] Address [address] [place] [address] Care Team Providers Care Selenium Plant Operator Name Role Phone Dylon Quiñonez MD Primary Care Provider [phone] Allergies No known active allergies Medications hydrOXYzine [...] (11/07/2022): Added automatically from request for surgery [id number] Anxiety Depression Family History Medical History Relation [...] [facility]-HIV Screening 2002 [facility]-Hepatitis C Screening 2002 [facility]-/Child/Adol SDOH Screenings 2002 [facility]-IPV Vaccines (2 of 3 - 4-dose series) 01/01/2007 12/04/2006 [facility]-Varicella Vaccines (2 of 2 - 2-dose childhood series) 06/28/2015 04/05/2015 [facility]- SDOH Screenings 2020 [facility]-Adult SDOH Screenings 2020 [facility]-Hepatitis B Vaccines (1 of 3 - 19+ 3-dose series) 2021 [facility]-Pap Smear 11/28/2023 [facility]-Depression Screening 02/07/2024 023, 10/03/2022, 10/03/2022, Additional history exists [id number] Vaccine (3 - 2023- season) 2024 04/09/2021, 03/12/2021 [facility]-DTaP,Tdap,and Td Vaccines (4 - Td or Tdap) 04/05/2025 04/05/2015, 12/04/2006, 03/17/2004 [facility]-Influenza Vaccine (#1) 05/17/202505/26, 08/02/2011, 08/04/2010, Additional history exists [facility]-Zoster Vaccines [...] complete this topic Insurance [employer] Care Teams Selenium Plant Operator Relationship Specialty Start Date End Date Dylon Quiñonez MD [address] [place] [address] PCP - General 10/03/22
== END 2025-03-23 23:59 | disposition home or self-care (01) ==
LOC: RAD 15:18
PROVIDERS: PCP Family Medicine; Visit Provider Obstetrics & Gynecology
DX: O34.81 Maternal care for other abnormalities of pelvic organs, first trimester (principal); N83.01 Follicular cyst of right ovary; T83.89XA Other specified complication of genitourinary prosthetic devices, implants and grafts, initial encounter; Z3A.01 Less than 8 weeks gestation of pregnancy
CPT/HCPCS: 76801

== ENCOUNTER 2025-04-06 05:29 | Day surgery (SDC) | payer BC, SELFPAY ==
--- OUTSIDE RECORDS SUMMARY | 2024-10-23 06:00 | XMS_ITS ---
[facility] Address [address] [place] [id number] Care Team Providers Care Operations Research Director Name Role Phone Latesha Burgess Primary Care Provider Osiris Mota Unavailable [phone] Allergies No Known Allergies Reason For Referral Diagnosis 1 Dyspepsia (R10.13) [facility] Referring Provider First Name Osiris Referring Provider Last Name Nakul Referring Provider Speciality Physician Pediatrics Physician Referred Provider Gastroenterology, . Referred Provider Specialty Gastroentero logy General Notes Osiris Mota 2024 10:32:47 AM > patient needs an appt with May Anderson Brynn 10/23/2024 10:38:23 AM > faxed to Dr. Medina office, Jelly De La Rosa 10/28/2024 10:37:04 AM > 11/25/2024 at 02:00pm Referral Priority Routine REASON FOR VISIT discuss anxiety medication Medications Medication SIG (Take, Route, Fr equency, Duration) Notes Start Date End Date Status hydrOXYzine HCl 25 MG 1/2 - 1 tab orally 4 times a day, prn 10/05/2021 Active PROzac 10 MG 1 capsule Orally Onc e a day; Duration: 30 day(s) 10/23/2024 Active Vital Signs Blood pressure systolic 120 mm Hg 10/23/19 25 Blood pressure diastolic 72 mm Hg 025 Heart Rate 74 /min 10/23/2024 Height 67.50 in 10/23/2024 Weight 214.0 lbs 10/23/2024 BMI 33.02 kg/m2 10/23/2024 Encounters Encounter Location Date Provider Diagnosis [facility] [address] [place] [id number] 10/23/2024 Osiris Mota Depression with anxi ety F41.8 and Dyspepsia R10.13 Assessments Encounter Date Diagnosis (ICD Code) Assessment Notes Treatment Notes Treatment Clinical Notes Section Notes 10/23/2024 Depression with anxiety (ICD-10 - F41.8) 10/23/2024 Dyspepsia (ICD-10 - R10.13) Plan Of Treatment Medication Medication Name Sig Start Date Stop Date Notes hydrOXYzine HCl 25 MG 1/2 - 1 tab orally 4 times a day, prn 10/05/2021 PROzac 10 MG 1 capsule Orally Onc e a day; Duration: 30 day(s) 10/23/2024 Referrals Referral Date Details 10/23/2024 10/23/2024, . Gastro enterology Next Appt Details Follow Up: 3 Weeks, Reason: Progress Notes * BRII DE LA ROSAHDOB:2000 (24 yo F)Acc No.[id number]:10/23/2024 Progress Notes Patient: MOLLY AARON Provider: ANGELA Mayer :2000 A ge:23 Y S ex:Female Date:10/23/2024 Address:[place], [id number] Pcp:Latesha Burgess Subjective: * Chief Complaints: * 1 . Discuss anxiety medication. * HPI: P sychology: 23 year old female presents with c/o Anxiety P t would like to discuss getting back on anxiety and depression medication. Pt sts she sts she is starting school soon and feels like she needs it. She previously took prozac and hydroxyzine.. G astroenterology: Still has some abdominal off and on with foods. Was negative on celiac disease testing and allergy testing. Has never seen GI. * ROS: A LLERGY: no C ough. n o R unny nose. D ERMATOLOGY: no R debi. n o H raegan. U ROLOGY: no D ifficulty urinating. n o B lood in urine. * Medical History: G luten Intolerant. * Surgical History: t eeth 09/2007, [place] Teeth 09/2018. * Hospitalization/Major Diagno stic Procedure: F ever- [facility] ER 07/28/2007, Abdominal Pain- [facility] ER 03/12/2009, cyst removed 11/2022. * Family History: F ather: alive. M other: alive. 1 sister(s) . . * Social History: C URRENT TOBACCO USE S moking Status: Patient does NOT smoke, Second hand smoke exposure: No. H ome smoke detector use: yes. Marital Status: Single. Past smoking status: no, Smoking status: occasionally exposed to secondhand smoke. * Medications: N one * Allergies: N .K.D.A. Objective: * Vitals: W t:214.0, Temp:97.7, BP:120/72, HR:74, O2 Sat:97% on RA, Nurse:[facility], Ht: 67.50, BMI:33.02. * Examination: P sychology: General Appearance: N AD. G rooming : a dequate.?Eye contact : n ormal. M ood : p leasant. H eart: R SR. L ungs: c lear to auscultation. A bdomen: bowel sounds present, soft and nontender. N eurologic Exam: I ntact, gait normal. Assessment: * Assessment: 1. D epression with anxiety - F41.8 (Primary) 2 . D yspepsia - R10.13 ? Plan: * Treatment: 2. D yspepsia Referral To:. Gastroenterology Gastroenterology Reason: * Follow Up: 3 Weeks * Images: Billing Information: * Visit Code: 32696 Office Visit, Est Pt., Level 3. * Procedure Codes: * Electronic signature of ANGELA Bingham on 04/06/2025 at 05:36 AM EDT Sign off status: Pending * Provider: ANGELA Mayer Date: 0 10/23/2024 Generated for Johanny harris/Irene/Mariamitting on: 0 04/06/2025 05:36 AM EDT History and Physical Notes * HPI (History of Present Illness) Category Sub-Category Detail Notes Category Not es Psychology Anxiety Pt would like to discuss getting back on anxiety and depression medication. Pt sts she sts she is starting school soon and feels like she needs it. She previously took prozac and hydroxyzine. Gastroenterology Still has s ome abdominal off and on with foods. Was negative on celiac disease testing and allergy testing. Has never seen GI. Examination Category Sub-Category Detail Notes Category Not es Psychology Heart: RSR Lungs: clear to auscultatio n Abdomen: bowel sounds present , soft and nontender General Appearance: NAD Neurologic Exam: Intact, gait normal Grooming : adequate Eye contact : normal Mood : pleasant Consultation Request Notes Referral Date Referring Provider Referred Provider Not es 10/23/2024 Osiris Mota Gastroenterology, .
--- OUTSIDE RECORDS SUMMARY | 2024-11-13 12:00 | XMS_ITS ---
Author Organization [facility] Address [address] [facility] [address] [place] [id number] Care Team Providers Care Flatwork Catcher Name Role Phone Latesha Burgess Primary Care Provider Osiris Mota Unavailable [phone] Allergies No Known Allergies REASON FOR VISIT 3 week f/u Medications Medication SIG (Take, Route, Frequency, Duration) Notes Start Date End Date Status Venlafaxine HCl ER 37.5 MG 1 capsule wit h food Orally Once a day; Duration: 30 day(s) 11/13/2024 Active hydrOXYzine HCl 25 MG 1 tab orally 4 kisha es a day, prn 10/05/2021 Active Albuterol Sulfate HFA 108 (90 Base) MCG/ACT 1 puff as needed Inhalation every 4 hrs, prn 11/13/2024 Active Problems Problem Type SNOMED Code ICD Code Onset Dates Problem Status W/U Status Risk Notes Problem Exercise induced bronchospasm (711468837) 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) Active confirmed Vital Signs Blood pressure systolic 118 mm Hg 11/13/19 25 Blood pressure diastolic 66 mm Hg 025 Heart Rate 72 /min 11/13/2024 Height 67.50 in 11/13/2024 Weight 218.0 lbs 11/13/2024 BMI 33.64 kg/m2 11/13/2024 Encounters Encounter Location Date Provider Diagnosis [facility] [address] [place] [id number] 11/13/2024 Osiris Mota Depression with anxi ety F41.8 and Exercise induced bronchospasm J45.990 Assessments Encounter Date Diagnosis (ICD Code) Assessment Notes Treatment Notes Treatment Clinical Notes Section Notes 11/13/2024 Depression with anxiety (ICD-10 - F41.8) 11/13/2024 Exercise induced bronchospasm (ICD-10 - J45.990) Plan Of Treatment Medication Medication Name Sig Start Date Stop Date Notes Venlafaxine HCl ER 37.5 MG 1 capsule wit h food Orally Once a day; Duration: 30 day(s) 11/13/2024 hydrOXYzine HCl 25 MG 1 tab orally 4 kisha es a day, prn 10/05/2021 Albuterol Sulfate HFA 108 (9 0 Base) MCG/ACT 1 puff as needed Inhalation every 4 hrs, prn 11/13/2024 PROzac 10 MG 1 capsule Orally Once a day 10/23/2024 Next Appt Details Follow Up: 3 Weeks, Reason: Progress Notes * BRII DE LA ROSAHDOB:2000 (24 yo F)Acc No.[id number]:11/13/2024 Patient: Maria Alejandra RAYAMOLLY ACOSTA Provider: ANGELA Mayer :2000 A ge:23 Y S ex:Female Date:11/13/2024 Address:[place], [id number] Pcp:Latesha Burgess Subjective: * Chief Complaints: * 1 . 3 week f/u. * HPI: H PI: 23 year old female presents with c/o Here for follow up on:?Pt is here today for a 3 week f/u on anxiety and depression. Pt sts she is doing better. Pt would like to discuss one of her medications. She would like to switch to something weight neutral. Pt sts she would like to have another inhaler as well. * ROS: A LLERGY: no C ough. n o R unny nose. D ERMATOLOGY: no R debi. n o H raegan. U ROLOGY: no D ifficulty urinating. n o B lood in urine. * Medical History: G luten Intolerant. * Surgical History: t eeth 09/2007, [place] Teeth 09/2018. * Hospitalization/Major Diagno stic Procedure: F ever- [facility] ER 07/28/2007, Abdominal Pain- [facility] ER 03/12/2009, cyst removed 11/2022. * Family History: F ather: alive. M other: alive. 1 sister(s) . . * Social History: C URRENT TOBACCO USE S moking Status: Patient does NOT smoke, Second hand smoke exposure: No. H ome smoke detector use: yes. Marital Status: Single. Past smoking status: no, Smoking status: occasionally exposed to secondhand smoke. * Medications: T aking PROzac 10 MG Capsule 1 capsule Orally Once a day , Taking hydrOXYzine HCl 25 MG Tablet 1/2 - 1 tab orally 4 times a day, prn , Medication List reviewed and reconciled with the patient * Allergies: N .K.D.A. Objective: * Vitals: W t:218.0, Temp:97.7, BP:118/66, HR:72, O2 Sat:98% on RA, Nurse:[facility], Ht: 67.50, BMI:33.64. * Examination: P sychology: General Appearance: N AD. G rooming : a dequate.?Eye contact : n ormal. M ood : p leasant. H eart: R SR. L ungs: c lear to auscultation. N eurologic Exam: I ntact, gait normal. Assessment: * Assessment: 1. D epression with anxiety - F41.8 (Primary) 2 . E xercise induced bronchospasm - J45.990 Plan: * Treatment: 2. E xercise induced bronchospasm Start Albuterol Sulfate HFA Aerosol Solution, 108 (90 Base) MCG/ACT, 1 puff as needed, Inhalation, every 4 hrs, prn, 1, Refills 1. * Procedure Codes: 9 4760 PULSE OX, 3074F SYST BP LT 130 MM HG, 3078F DIAST BP < 80 MM HG * Follow Up: 3 Weeks * Images: Billing Information: * Visit Code: 91693 Office Visit, Est Pt., Level 3. * Procedure Codes: 10124 PULSE OX. 3074F SYST BP LT 130 MM HG. 3078F DIAST BP < 80 MM HG. * Electronic signature of ANGELA Bingham on 04/06/2025 at 05:36 AM EDT Sign off status: Pending * Provider: ANGELA Mayer Date: 0 11/13/2024 Generated for Johanny harris/Irene/Mariamitting on: 0 04/06/2025 05:36 AM EDT History and Physical Notes * HPI (History of Present Illness) Category Sub-Category Detail Notes Category Not es HPI Here for follow up on: Pt is her e today for a 3 week f/u on anxiety and depression. Pt sts she is doing better. Pt would like to discuss one of her medications. She would like to switch to something weight neutral. Pt sts she would like to have another inhaler as well Examination Category Sub-Category Detail Notes Category Not es Psychology Heart: RSR Lungs: clear to auscultatio n General Appearance: NAD Neurologic Exam: Intact, gait normal Grooming : adequate Eye contact : normal Mood : pleasant
--- OUTSIDE RECORDS SUMMARY | 2024-12-04 12:00 | XMS_ITS ---
Author Organization [facility] Address [address] [facility] [address] [facility] [address] [place] [phone] Care Team Providers Care Clinical Reimbursement Specialist Name Role Phone Latesha Burgess Primary Care Provider [phone] Osiris Mota [phone] REASON FOR VISIT 3 week f/u Encounters Encounter Location Date Provider Diagnosis [facility] [address] [facility] [address] [facility] [address] [place] [phone] 12/04/2024 Osiris Mota Plan Of Treatment No Information Progress Notes * YANELIS DE LA ROSAOB:2000 (24 yo F)Acc No.[id number]:12/04/2024 Progress Notes Patient: MOLLY AARON Provider: ANGELA [...] Pending * Provider: ANGELA Mayer Date: 0 12/04/2024 Generated for Printi ng/Faxing/eTransmitting on: 0 04/06/2025 05:36 AM EDT
[2025-04-06] VITALS (26 sets, daily range): BP systolic 111–139; BP diastolic 53–80; PULSE 50–82; RESP 14–20; TEMP 36.1–36.9; O2SAT 97–100; BMI 29.3
--- NOTE | 2025-04-06 05:33 | HMH.EDGENADL ---
Discharge Plan Disposition Patient Disposition: Home, Self-Care Clinical Impressions Clinical Impression: Acute endometritis Discharge ED Provider: Rene Valle General Adult HPI <Jerod Batista MD - Last Filed: 04/06/25 06:58> General Chief complaint: Abdominal Pain Stated complaint: vomiting, dizzy, abd pain Time Seen by Provider: 04/06/25 05:33 History of Present Illness HPI narrative: 24-year-old female with history of recent procedural on in [place] presents for worsening pelvic pain. She reports it comes in waves and is more severe than any pain that she has had before. She reports that she had a fever with a temp of 100.2 at home and had another bout but she felt feverish but did not check her temperature. She reports that she has been having vaginal bleeding about the level of her., Denies any other vaginal discharge or odor. Denies any urinary symptoms. Reports that she has been having normal bowel movements. Related Data Previous Rx's ?Medication ?Instructions ?Recorded amoxicillin 875 mg-potassium 1 tab PO BID 7 days #14 tabs 04/06/25 clavulanate 125 mg tablet lidocaine 5 % topical patch 1 patch topical DAILY PRN pain #30 04/06/25 ea methocarbamol 500 mg tablet 1,000 mg (2 x 500 mg) PO Q6H PRN 04/06/25 pain #30 tabs promethazine 25 mg tablet 25 mg PO Q6H PRN nausea and 04/06/25 vomiting #20 tabs Allergies Allergy/AdvReac Type Severity Reaction Status Date / Time No Known Allergies Allergy Verified 04/06/25 05:51 PFSH <Jerod Batista MD - Last Filed: 04/06/25 06:58> [facility] Disclaimer: The information contained in this section may have been updated after the patient was seen, as this information can be updated by other users. Medical History Pilonidal cyst Migraine Hypertension Depression Anxiety Urinary tract infection Surgical History History of dilatation and curettage No significant past surgical history History of tonsillectomy Social History Smoking Status: Current every day smoker alcohol intake: current substance use type: marijuana current occupational status: student Travel in the last 8 weeks?: None household members: family housing: house Other Medical History Have you received the Flu Vaccine for this season: No Have you received the Pneumonia Vaccine: No <Jerod Batista MD - Last Filed: 04/06/25 06:58> ROS Obtained: Yes All systems reviewed & no additional complaints except as documented Physical Exam <Jerod Batista MD - Last Filed: 04/06/25 06:58> General General appearance: alert and in no apparent distress Head Head exam: atraumatic and normocephalic Eye Eye exam: Present normal appearance, PERRL and EOMI ENT ENT exam: Present normal oropharynx and normal external ear exam Neck Neck exam: Present normal inspection and full ROM Chest Chest inspection: Present normal inspection and symmetric chest wall rise; Absent tenderness Respiratory Respiratory exam: Present normal lung sounds bilaterally; Absent respiratory distress Cardiovascular Cardiovascular exam: Present regular rate and normal rhythm Abdominal Exam Abdominal exam: Present soft; Absent distention, tenderness or guarding Extremities Exam Extremities exam: Present normal inspection; Absent edema or joint swelling Back Exam Back exam: Present normal inspection; Absent tenderness Neurological Exam Neurological exam: Present alert and oriented X3; Absent motor sensory deficit Psychiatric Psychiatric exam: Present normal affect and normal mood Skin Skin exam: Present warm, dry and normal color Lymphatic Lymphatic Findings: no adenopathy Medical Decision Making <Jerod Batista MD - Last Filed: 04/06/25 06:58> Medical Records Medical records reviewed: Yes I reviewed the patient's medical records. Screening: Per USPSTF and CDC recommendations, given the prevalence of disease in our region, it is our hospital?s policy to screen for HIV and viral Hepatitis for all patients aged 18 and over and those with ongoing risk factors. Archie Inquiry Pt receiving controlled substance: No Archie was queried for this patient: No Vital Signs: 04/06/25 05:40 04/06/25 05:43 04/06/25 06:00 Temperature 98.3 F Temperature Source Oral Pulse Rate 68 82 Pulse Rate [Left] 73 Respiratory Rate 14 Blood Pressure 129/67 Blood Pressure [Right Arm] 129/67 Blood Pressure Mean Blood Pressure Mean [Right Arm] 87 Blood Pressure Source [Right Arm] Automatic Cuff Blood Pressure Position [Right Arm] Sitting 02 Sat by Pulse Oximetry 98 98 99 Oxygen Delivery Method Room Air 04/06/25 06:02 04/06/25 06:02 04/06/25 06:15 Temperature Temperature Source Pulse Rate 74 73 Pulse Rate [Left] Respiratory Rate Blood Pressure 136/71 Blood Pressure [Right Arm] Blood Pressure Mean 81 Blood Pressure Mean [Right Arm] Blood Pressure Source [Right Arm] Blood Pressure Position [Right Arm] 02 Sat by Pulse Oximetry 99 98 Oxygen Delivery Method 04/06/25 06:30 04/06/25 06:30 04/06/25 06:45 Temperature Temperature Source Pulse Rate 61 73 Pulse Rate [Left] Respiratory Rate Blood Pressure 111/58 L Blood Pressure [Right Arm] Blood Pressure Mean 75 Blood Pressure Mean [Right Arm] Blood Pressure Source [Right Arm] Blood Pressure Position [Right Arm] 02 Sat by Pulse Oximetry 98 98 Oxygen Delivery Method 04/06/25 07:00 04/06/25 07:15 04/06/25 08:00 Temperature Temperature Source Pulse Rate 72 76 65 Pulse Rate [Left] Respiratory Rate 16 Blood Pressure 130/77 130/77 121/79 Blood Pressure [Right Arm] Blood Pressure Mean Blood Pressure Mean [Right Arm] Blood Pressure Source [Right Arm] Blood Pressure Position [Right Arm] 02 Sat by Pulse Oximetry 100 99 100 Oxygen Delivery Method Room Air Room Air Room Air 04/06/25 08:30 04/06/25 09:01 04/06/25 09:19 Temperature Temperature Source Pulse Rate 56 L 55 L 52 L Pulse Rate [Left] Respiratory Rate 18 Blood Pressure 130/80 114/53 L 114/53 L Blood Pressure [Right Arm] Blood Pressure Mean Blood Pressure Mean [Right Arm] Blood Pressure Source [Right Arm] Blood Pressure Position [Right Arm] 02 Sat by Pulse Oximetry 98 98 98 Oxygen Delivery Method Room Air Room Air Room Air 04/06/25 09:30 04/06/25 10:00 04/06/25 10:13 Temperature 98.4 F Temperature Source Tympanic Pulse Rate 53 L 55 L Pulse Rate [Left] 57 L Respiratory Rate 16 Blood Pressure 121/66 119/69 Blood Pressure [Right Arm] 119/69 Blood Pressure Mean Blood Pressure Mean [Right Arm] 85 Blood Pressure Source [Right Arm] Blood Pressure Position [Right Arm] 02 Sat by Pulse Oximetry 97 100 100 Oxygen Delivery Method Room Air Room Air Room Air 04/06/25 11:09 Temperature 98.4 F Temperature Source Tympanic Pulse Rate 57 L Pulse Rate [Left] Respiratory Rate 16 Blood Pressure 116/69 Blood Pressure [Right Arm] Blood Pressure Mean Blood Pressure Mean [Right Arm] Blood Pressure Source [Right Arm] Blood Pressure Position [Right Arm] 02 Sat by Pulse Oximetry Oxygen Delivery Method Room Air Lab Data Lab results reviewed: Yes I reviewed the patient's lab results. Lab Results 04/06/25 05:50: WBC 10.0, RBC 4.22, Hgb 13.3, Hct 37.9, MCV 89.8, MCH 31.5 H, MCHC 35.1, RDW 12.4, Plt Count 291, MPV 10.6 H, Neut % (Auto) 89.8 H, Lymph % (Auto) 8.4 L, [place] % (Auto) 1.4 L, Eos % (Auto) 0.0 L, Baso % (Auto) 0.2, Neut # (Auto) 8.9 H, Lymph # (Auto) 0.8, [place] # (Auto) 0.1, Eos # (Auto) 0.0, Baso # (Auto) 0.0, Sodium 137, Potassium 3.7, Chloride 106, Carbon Dioxide 23, Anion Gap 11.7, BUN 8, Creatinine 0.50 L, Estimated Creat Clear 251, Estimated GFR 154, Est GFR ( Amer) 187, Glucose 141 H, Calcium 9.4, Total Bilirubin 0.8, AST 35, ALT 40, Alkaline Phosphatase 67, Total Protein 7.6, Albumin 4.7, Globulin 2.9, Albumin/Globulin Ratio 1.6 04/06/25 07:45: Urine Color Yellow, Urine Appearance Sl cloudy, Urine pH 7.0, Ur Specific [place] 1.025, Urine Protein 1+ A, Urine Glucose (UA) Negative, Urine Ketones 1+, Urine Blood 3+ A, Urine Nitrate Negative, Urine Bilirubin Negative, Urine Urobilinogen 0.2, Ur Leukocyte Esterase Negative, Urine RBC 5-10, Urine WBC Occasional, Ur Squamous Epith Cells 3-5, Urine Bacteria Trace 04/06/25 10:30: Blood Type O Positive, Antibody Screen Negative 04/06/25 05:50 04/06/25 05:50 Orders (Tests/Meds): ED MEDICATIONS Generic Name Dose Route Start Last Admin Trade Name Freq PRN Reason Stop Dose Admin Hydromorphone HCl 0.5 mg 04/06/25 12:20 Hydromorphone 2mg/Ml Syringe IV 04/06/25 14:21 Q5MINP PRN Severe Pain (7-10) Meperidine HCl 12.5 mg 04/06/25 12:20 Meperidine 25mg/Ml 1ml Syringe IV 04/06/25 14:21 Q5MINP PRN Shivering Morphine Sulfate 2 mg 04/06/25 12:20 Morphine 2mg/Ml Syringe IV 04/06/25 14:20 Q5MINP PRN Moderate Pain (4-6) Ondansetron HCl 4 mg 04/06/25 12:20 Ondansetron 4mg/2ml Vial IV 04/06/25 14:21 Q6HP PRN Nausea Discontinued Medications Generic Name Dose Route Start Last Admin Trade Name Freq PRN Reason Stop Dose Admin Acetaminophen 1,000 mg 04/06/25 05:42 04/06/25 05:53 Acetaminophen 500mg Tab PO 04/06/25 05:43 1,000 mg ONCE ONE Administration Lactated Ringer's 1,000 mls @ 999 mls/hr 04/06/25 05:45 04/06/25 05:54 Lactated Ringer's 1000 Ml Bag IV 04/06/25 06:45 999 mls/hr .Q1H1M JORGE L Administration Ampicillin Sodium/Sulbactam 100 mls @ 200 mls/hr 04/06/25 06:32 04/06/25 06:39 Sodium 3 gm/ Sodium Chloride IV 04/06/25 06:33 200 mls/hr ONCE ONE Administration Ketorolac Tromethamine 30 mg 04/06/25 05:44 04/06/25 05:53 Ketorolac 30mg/Ml Vial IV 04/06/25 05:45 30 mg ONCE ONE Administration Morphine Sulfate 4 mg 04/06/25 05:44 04/06/25 05:54 Morphine 4mg/Ml Syringe IV 04/06/25 05:45 4 mg ONCE ONE Administration Ondansetron HCl 4 mg 04/06/25 07:18 04/06/25 07:47 Ondansetron 4mg/2ml Vial IV 04/06/25 07:19 4 mg ONCE ONE Administration Promethazine HCl 25 mg 04/06/25 05:44 04/06/25 05:54 Promethazine Hcl 25mg/Ml 1ml Vial IV 04/06/25 05:45 25 mg ONCE ONE Administration Sodium Chloride 25 ml 04/06/25 05:42 04/06/25 05:54 Sodium Chloride 0.9% 25ml Bag IV 04/06/25 05:43 25 ml ONCE ONE Administration Sodium Chloride 25 ml 04/06/25 05:44 04/06/25 07:31 Sodium Chloride 0.9% 25ml Bag IV 04/06/25 05:45 Not Given ONCE ONE ORDERS Category Date Time Status Type and Screen Stat BBK 04/06/25 10:30 Completed US transvaginal Stat Exams 04/06/25 06:29 Completed CBC w/Auto Diff [Complete Blood Count Auto Diff] Stat Lab 04/06/25 05:50 Completed CMP [Comprehensive Metabolic Panel] Stat Lab 04/06/25 05:50 Completed UA [Urinalysis and Microscopic] Stat Lab 04/06/25 07:45 Completed Medical Decision Narrative: 24-year-old female, status post procedural in [place] on , presents for worsening pelvic pain and right reported fever at home up to 100.2.. History was obtained via interactive discussion with patient. On arrival, patient is [afebrile, hemodynamically stable, satting appropriately, alert, oriented x4, GCS 15], moving all extremities spontaneously. Full physical exam performed and significant for benign abdominal exam Differential includes but is not limited to retained products of conception, endometritis, uterine perforation. Patient was given Tylenol, Toradol, Phenergan, fluid bolus for symptomatic management and correction of underlying abnormalities. Workup initiated including CBC CMP UA transvaginal ultrasound to assess for retained products. Patient was initiated on Unasyn 3 g for treatment of possible endometritis.. On re-evaluation, patient [remains afebrile, HD stable.] Laboratory workup independently interpreted by me and significant for no significant leukocytosis, no significant electrolyte derangement.. At this time care was on off to oncoming physician. Plan for transvaginal ultrasound. If ultrasound is negative. Patient will call to schedule follow-up with our CHIEF [employer]PUTY [employer] CLERK. <Rene Valle MD - Last Filed: 04/06/25 13:24> Vital Signs: 04/06/25 05:40 04/06/25 05:43 04/06/25 06:00 Temperature 98.3 F Temperature Source Oral Pulse Rate 68 82 Pulse Rate [Left] 73 Respiratory Rate 14 Blood Pressure 129/67 Blood Pressure [Right Arm] 129/67 Blood Pressure Mean Blood Pressure Mean [Right Arm] 87 Blood Pressure Source [Right Arm] Automatic Cuff Blood Pressure Position [Right Arm] Sitting 02 Sat by Pulse Oximetry 98 98 99 Oxygen Delivery Method Room Air 04/06/25 06:02 04/06/25 06:02 04/06/25 06:15 Temperature Temperature Source Pulse Rate 74 73 Pulse Rate [Left] Respiratory Rate Blood Pressure 136/71 Blood Pressure [Right Arm] Blood Pressure Mean 81 Blood Pressure Mean [Right Arm] Blood Pressure Source [Right Arm] Blood Pressure Position [Right Arm] 02 Sat by Pulse Oximetry 99 98 Oxygen Delivery Method 04/06/25 06:30 04/06/25 06:30 04/06/25 06:45 Temperature Temperature Source Pulse Rate 61 73 Pulse Rate [Left] Respiratory Rate Blood Pressure 111/58 L Blood Pressure [Right Arm] Blood Pressure Mean 75 Blood Pressure Mean [Right Arm] Blood Pressure Source [Right Arm] Blood Pressure Position [Right Arm] 02 Sat by Pulse Oximetry 98 98 Oxygen Delivery Method 04/06/25 07:00 04/06/25 07:15 04/06/25 08:00 Temperature Temperature Source Pulse Rate 72 76 65 Pulse Rate [Left] Respiratory Rate 16 Blood Pressure 130/77 130/77 121/79 Blood Pressure [Right Arm] Blood Pressure Mean Blood Pressure Mean [Right Arm] Blood Pressure Source [Right Arm] Blood Pressure Position [Right Arm] 02 Sat by Pulse Oximetry 100 99 100 Oxygen Delivery Method Room Air Room Air Room Air 04/06/25 08:30 04/06/25 09:01 04/06/25 09:19 Temperature Temperature Source Pulse Rate 56 L 55 L 52 L Pulse Rate [Left] Respiratory Rate 18 Blood Pressure 130/80 114/53 L 114/53 L Blood Pressure [Right Arm] Blood Pressure Mean Blood Pressure Mean [Right Arm] Blood Pressure Source [Right Arm] Blood Pressure Position [Right Arm] 02 Sat by Pulse Oximetry 98 98 98 Oxygen Delivery Method Room Air Room Air Room Air 04/06/25 09:30 04/06/25 10:00 04/06/25 10:13 Temperature 98.4 F Temperature Source Tympanic Pulse Rate 53 L 55 L Pulse Rate [Left] 57 L Respiratory Rate 16 Blood Pressure 121/66 119/69 Blood Pressure [Right Arm] 119/69 Blood Pressure Mean Blood Pressure Mean [Right Arm] 85 Blood Pressure Source [Right Arm] Blood Pressure Position [Right Arm] 02 Sat by Pulse Oximetry 97 100 100 Oxygen Delivery Method Room Air Room Air Room Air 04/06/25 11:09 Temperature 98.4 F Temperature Source Tympanic Pulse Rate 57 L Pulse Rate [Left] Respiratory Rate 16 Blood Pressure 116/69 Blood Pressure [Right Arm] Blood Pressure Mean Blood Pressure Mean [Right Arm] Blood Pressure Source [Right Arm] Blood Pressure Position [Right Arm] 02 Sat by Pulse Oximetry Oxygen Delivery Method Room Air Lab Data Lab Results 04/06/25 05:50: WBC 10.0, RBC 4.22, Hgb 13.3, Hct 37.9, MCV 89.8, MCH 31.5 H, MCHC 35.1, RDW 12.4, Plt Count 291, MPV 10.6 H, Neut % (Auto) 89.8 H, Lymph % (Auto) 8.4 L, [place] % (Auto) 1.4 L, Eos % (Auto) 0.0 L, Baso % (Auto) 0.2, Neut # (Auto) 8.9 H, Lymph # (Auto) 0.8, [place] # (Auto) 0.1, Eos # (Auto) 0.0, Baso # (Auto) 0.0, Sodium 137, Potassium 3.7, Chloride 106, Carbon Dioxide 23, Anion Gap 11.7, BUN 8, Creatinine 0.50 L, Estimated Creat Clear 251, Estimated GFR 154, Est GFR ( Amer) 187, Glucose 141 H, Calcium 9.4, Total Bilirubin 0.8, AST 35, ALT 40, Alkaline Phosphatase 67, Total Protein 7.6, Albumin 4.7, Globulin 2.9, Albumin/Globulin Ratio 1.6 04/06/25 07:45: Urine Color Yellow, Urine Appearance Sl cloudy, Urine pH 7.0, Ur Specific [place] 1.025, Urine Protein 1+ A, Urine Glucose (UA) Negative, Urine Ketones 1+, Urine Blood 3+ A, Urine Nitrate Negative, Urine Bilirubin Negative, Urine Urobilinogen 0.2, Ur Leukocyte Esterase Negative, Urine RBC 5-10, Urine WBC Occasional, Ur Squamous Epith Cells 3-5, Urine Bacteria Trace 07/22/25 10:30: Blood Type O Positive, Antibody Screen Negative Orders (Tests/Meds): ED MEDICATIONS Generic Name Dose Route Start Last Admin Trade Name Chilo PRN Reason Stop Dose Admin Hydromorphone HCl 0.5 mg 04/06/25 12:20 Hydromorphone 2mg/Ml Syringe IV 04/06/25 14:21 Q5MINP PRN Severe Pain (7-10) Meperidine HCl 12.5 mg 04/06/25 12:20 Meperidine 25mg/Ml 1ml Syringe IV 04/06/25 14:21 Q5MINP PRN Shivering Morphine Sulfate 2 mg 04/06/25 12:20 Morphine 2mg/Ml Syringe IV 04/06/25 14:20 Q5MINP PRN Moderate Pain (4-6) Ondansetron HCl 4 mg 04/06/25 12:20 Ondansetron 4mg/2ml Vial IV 04/06/25 14:21 Q6HP PRN Nausea Discontinued Medications Generic Name Dose Route Start Last Admin Trade Name Chilo PRN Reason Stop Dose Admin Acetaminophen 1,000 mg 04/06/25 05:42 04/06/25 05:53 Acetaminophen 500mg Tab PO 04/06/25 05:43 1,000 mg ONCE ONE Administration Lactated Ringer's 1,000 mls @ 999 mls/hr 04/06/25 05:45 04/06/25 05:54 Lactated Ringer's 1000 Ml Bag IV 04/06/25 06:45 999 mls/hr .Q1H1M JORGE L Administration Ampicillin Sodium/Sulbactam 100 mls @ 200 mls/hr 04/06/25 06:32 04/06/25 06:39 Sodium 3 gm/ Sodium Chloride IV 04/06/25 06:33 200 mls/hr ONCE ONE Administration Ketorolac Tromethamine 30 mg 04/06/25 05:44 04/06/25 05:53 Ketorolac 30mg/Ml Vial IV 04/06/25 05:45 30 mg ONCE ONE Administration Morphine Sulfate 4 mg 04/06/25 05:44 04/06/25 05:54 Morphine 4mg/Ml Syringe IV 04/06/25 05:45 4 mg ONCE ONE Administration Ondansetron HCl 4 mg 04/06/25 07:18 04/06/25 07:47 Ondansetron 4mg/2ml Vial IV 04/06/25 07:19 4 mg ONCE ONE Administration Promethazine HCl 25 mg 04/06/25 05:44 04/06/25 05:54 Promethazine Hcl 25mg/Ml 1ml Vial IV 04/06/25 05:45 25 mg ONCE ONE Administration Sodium Chloride 25 ml 04/06/25 05:42 04/06/25 05:54 Sodium Chloride 0.9% 25ml Bag IV 04/06/25 05:43 25 ml ONCE ONE Administration Sodium Chloride 25 ml 04/06/25 05:44 04/06/25 07:31 Sodium Chloride 0.9% 25ml Bag IV 04/06/25 05:45 Not Given ONCE ONE ORDERS Category Date Time Status Type and Screen Stat BBK 04/06/25 10:30 Completed US transvaginal Stat Exams 04/06/25 06:29 Completed CBC w/Auto Diff [Complete Blood Count Auto Diff] Stat Lab 04/06/25 05:50 Completed CMP [Comprehensive Metabolic Panel] Stat Lab 04/06/25 05:50 Completed UA [Urinalysis and Microscopic] Stat Lab 04/06/25 07:45 Completed Medical Decision Narrative: 24-year-old female, status post procedural in [place] on , presents for worsening pelvic pain and right reported fever at home up to 100.2.. History was obtained via interactive discussion with patient. On arrival, patient is [afebrile, hemodynamically stable, satting appropriately, alert, oriented x4, GCS 15], moving all extremities spontaneously. Full physical exam performed and significant for benign abdominal exam Differential includes but is not limited to retained products of conception, endometritis, uterine perforation. Patient was given Tylenol, Toradol, Phenergan, fluid bolus for symptomatic management and correction of underlying abnormalities. Workup initiated including CBC CMP UA transvaginal ultrasound to assess for retained products. Patient was initiated on Unasyn 3 g for treatment of possible endometritis.. On re-evaluation, patient [remains afebrile, HD stable.] Laboratory workup independently interpreted by me and significant for no significant leukocytosis, no significant electrolyte derangement.. At this time care was on off to oncoming physician. Plan for transvaginal ultrasound. If ultrasound is negative. Patient will call to schedule follow-up with our CHIEF [employer]PUT[employer] COURT CLERK. Rene Valle MD Transvaginal ultrasound is completed and showed findings concerning for retained products of conception. I discussed these results with the patient and explained that she would likely need a D&C to clear the remaining products of conception out of her uterus. Will discuss patient's case with Dr. Castro with CHIEF [employer]PUT[employer] COURT CLERK. I discussed patient's case with Dr. Castro and he stated that he will take the patient to the OR for D&C at approximately noon today. I discussed this with the patient and she was amenable to this plan. Patient was made n.p.o. and patient subsequently went up to the OR before noon for further management. Procedures <Jerod Batista MD - Last Filed: 04/06/25 06:58> Risk/Benefits of Procedure(s) Were Explained: Yes Critical Care <Jerod Batista MD - Last Filed: 04/06/25 06:58> Critical Care Time Critical Care Time: No
--- OUTSIDE RECORDS SUMMARY | 2025-04-06 05:36 | XMS_ITS | Patient Health Record ---
Author Organization [facility] Address [address] [place] [id number] Care Team Providers Care Fiber Drier Operator Name Role Phone Latesha Burgess Primary Care Provider Osiris Mota Unavailable [phone] Allergies No Known Allergies Results Component Value Reference Range Notes H-CBC Reviewed date:06/19/2024 08:01:16 AM Interpretation: Performing [...] AGRATIO 2.0 1.1-1.8 ALP 78 38-126 U/L H-TSH Reviewed date:06/19/2024 08:01:16 AM Interpretation: Performing Lab: Notes/Report: TSH 0.58 0.465-4.68 uIU/mL H-CELIAC PANEL Reviewed date:06/24/2024 02:03:06 PM Interpretation:Negative [...] 9 Positive >9 Performed at: [facility] [id number] Trichologist: Steffen Maddox PhD, Phone: [phone] ENDIGA Negative Negative Performed at: [address] [id number] Trichologist: Steffen Maddox PhD, Phone: [phone] RETIGA Negative Neg:<1:2.5 titer IgA class reticulin antibodies are specific for celiac disease and occur in 60% of patients with active disease. Results for this test are for research purposes only by the assay's mail technician. The performance characteristics of this product have not been established. Results should not be used as a diagnostic procedure without confirmation of the diagnosis by another medically established diagnostic product or procedure. Performed at: [facility] [address] [id number] Trichologist: Amy Villafana MD, Phone: [phone] GLIAD IGA 3 0-19 units Negative 0 [...] SESAMEP <0.10 Class 0 kU/L Performed at: [facility] [id number] Trichologist: Amy Villafana MD, Phone: [phone] Medications Medication SIG (Take, Route, Frequency, Duration) [...] Vaccine Route Administration Date Status Comme nts xFluzone (6mos and older)-trivalent IM Intramuscular 05/26/2012 Administered xFlumist (intranasally age 2yr-49yr)-trivalent IN intranasal 07/13/2009 Administered xFlu shot-36 months and older IM Intramuscular 08/01/2007 Administered xFlu shot-36 months and older IM Intramuscular 08/04/2010 Administered xFlu shot-36 months and older IM Intramuscular 08/02/2011 Administered Varivax SC Subcutaneous 04/05/2015 Administered Tetanus Tdap-Adacel (over 7yrs) IM Intramuscular 04/05/2015 Administered MMR Unknown 03/17/2004 Administered MMR Unknown 12/04/2006 Administered Menactra IM Intramuscular 04/05/2015 Administered Menactra IM Intramuscular 04/22/2019 Administered IPV Unknown 12/04/2006 Administered Hep A- Pediatric IM Intramuscular 12/17/2017 Administered Hep A- Pediatric IM Intramuscular 09/05/2018 Administered Gardasil 9 IM Intramuscular 12/17/2017 Administered Gardasil 9 IM Intramuscular 06/24/2018 Administered Gardasil 9 IM Intramuscular 04/22/2019 Administered COVID 19 Moderna Unknown 03/12/2021 Administered COVID 19 Moderna Unknown 04/09/2021 Administered Problems Problem Type SNOMED Code ICD Code Onset Dates Problem Status W/U Status Risk Notes Problem Attention deficit hyperactivity disorder (859402798) Attention deficit hyperactivity disorder (314.01) Active confirmed Problem Altered mental status (614489758) ALTERED MENTAL STATUS (780.97) Active confirmed Problem Mixed anxiety and depressive disorder (882732141) Depression with anxiety (F41.8) Active confirmed Problem Exercise induced bronchospasm (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) Active confirmed Problem Sleep disorder (51261302) Sleep disorder (G47.9) Active confirmed Problem Gastroesophageal reflux disease (448373481) Gastroesophageal reflux disease, unspecified whether esophagitis present (K21.9) Active confirmed Vital Signs Heart Rate 72 /min 11/13/2024 Blood pressure diastolic 66 mm Hg 11/13/2024 Height 67.50 in 11/13/2024 Blood pressure systolic 118 mm Hg 11/13/2024 Weight 218.0 lbs 11/13/2024 BMI 33.64 kg/m2 11/13/2024 Encounters Encounter Location Date Provider [facility] [address] [place] [id number] 06/18/2024 Osiris Crowdy Dyspepsia R10.13 ; Gastroesophageal reflux disease, unspecified whether esophagitis present K21.9 and Depression with anxiety F41.8 [facility] [address] [place] [id number] 10/23/2024 Osiris Crowdy Depression with anxi ety F41.8 and Dyspepsia R10.13 [facility] [address] [place] [id number] 11/13/2024 Osiris Crowdy Depression with anxi ety F41.8 and Exercise induced bronchospasm J45.990 [facility] [address] [place], [place] [id number] 06/19/2024 [facility] [address] [place], [place] [phone] 12/03/2024 Latesha Burgess Depression with anxi ety [...] Coverage Start Date Coverage End Date [employer] [facility] [address] [place] [address] [phone] [id number] MOLLY DE LA ROSA Self - patient is the insured Medical (General) History Medical History History ICD Code Gluten Intolerant Surgical History Surgery Date(Month/Year) teeth 09/2007 [facility] 09/2018 Hospitalization History Reason Date(Month/Year) Fever- [facility] 07/28/2007 Abdominal Pain- [facility] 03/12/2009 cyst removed 11/2022
--- OUTSIDE RECORDS SUMMARY | 2025-04-06 05:36 | XMS_ITS | Clinical Summary ---
Author Organization [facility] Address [address] [place] [address] Care Team Providers Care Trailer Technician Name Role Phone Dylon Quiñonez MD Primary Care Provider [phone] Allergies No known active allergies Medications hydrOXYzine [...] (11/07/2022): Added automatically from request for surgery [id number] Anxiety Depression Family History Medical History Relation [...] 02/07/2024 023, 10/03/2022, 10/03/2022, Additional history exists [id number] Vaccine (3 - 2023- season) 2024 04/09/2021, [...] complete this topic Insurance [employer] Care Teams Trailer Technician Relationship Specialty Start Date End Date Dylon Quiñonez MD [address] [place] [address] PCP - General 10/03/22
[2025-04-06] MEDS: KETOROLAC 30MG/ML VIAL 30 MG IV (05:53)
[2025-04-06] MEDS: ACETAMINOPHEN 500MG TAB 1000 MG PO (05:53)
[2025-04-06] MEDS: SODIUM CHLORIDE 0.9% 25ML BAG 25 ML IV (05:54)
[2025-04-06] MEDS: LACTATED RINGERS 1000ML 1,000 ML 999 ML IV (05:54)
[2025-04-06] MEDS: MORPHINE 4MG/ML SYRINGE 4 MG IV (05:54)
[2025-04-06] MEDS: PROMETHAZINE HCL 25MG/ML 1ML VIAL 25 MG IV (05:54)
[2025-04-06 06:00] LABS: Hematocrit 37.9 % (37.0-47.0); Hemoglobin 13.3 g/dL (12.2-16.2); Immature Granulocytes % 0.2 %; Mean Corpuscular HGB Conc 35.1 g/dL (31.8-35.4); Mean Corpuscular Hemoglobin 31.5 pg (27.0-31.2); Mean Corpuscular Volume 89.8 fl (81-99); Nucleated Red Blood Cells % 0 %; Platelet Count 291 K/mm3 (142-424); Red Blood Count 4.22 M/mm3 (4.20-5.40); Red Cell Distribution Width-SD 40.3 fL; White Blood Count 10.0 K/mm3 (4.8-10.8)
[2025-04-06 06:06] LABS: Alanine Aminotransferase 40 U/L (12-78); Albumin Level 4.7 g/dl (3.5-5.0); Albumin/Globulin Ratio 1.6 (1.1-1.8); Alkaline Phosphatase 67 U/L (38-126); Anion Gap 11.7 mEq/L (5-15); Aspartate Amino Transferase 35 U/L (14-36); Bilirubin,Total 0.8 mg/dl (0.2-1.3); Blood Urea Nitrogen 8 mg/dl (7-17); Calcium 9.4 mg/dl (8.4-10.2); Carbon Dioxide 23 mmol/L (22.0-30.0); Chloride 106 mmol/L (98-107); Creatinine Clearance Estimated 251 mL/min (50-200); Creatinine,Serum 0.50 mg/dl (0.52-1.04); Estimated Glomerular Filt Rate 154 ml/min (>60); GFR (African American) 187 ML/MIN (>60); Globulin 2.9 g/dL (1.3-3.2); Glucose 141 mg/dl (74-100); Potassium 3.7 mmoL/L (3.5-5.1); Sodium 137 mmol/L (136-145); Total Protein,Serum 7.6 g/dl (6.3-8.2)
--- NOTE | 2025-04-06 06:29 | US_ITS ---
PROCEDURE INFORMATION: Exam: US Pelvis, Transvaginal, Non-Obstetric Exam date and time: 04/06/2025 7:14 AM Age: 24 years old Clinical indication: Pelvic pain; Prior surgery; Surgery date: 3-7 days post-operative; Surgery type: Recent --; Poss retained proc-- fever; Additional info: Recent , pain, concern 4 retained products TECHNIQUE: Imaging protocol: Real-time transvaginal pelvic (non-obstetric) ultrasound with image documentation. Transvaginal imaging was used for better evaluation of the endometrium, adnexa, and/or cervix. Other technique: Real-time transabdominal and transvaginal pelvic ultrasound (complete) with color spectral Doppler evaluation and image documentation. Transvaginal imaging was used for better evaluation of the endometrium and adnexa. COMPARISON: US OB TRANSVAGINAL 03/10/2025 3:37 PM FINDINGS: Uterus: The uterus measures 9.6 x 4.6 x 6.0 cm and contains a thickened endometrial stripe measuring 12.6 mm. The material within the endometrial cavity measures 2.4 x 1.3 x 4.5 cm (AP x transverse x longitudinal ) and is vascular and suspicious for retained products of conception. Right ovary/adnexa: Normal right ovary measuring 3.9 x 1.5 x 2.3 cm. No mass. Normal ovarian blood flow on color Doppler. Left ovary/adnexa: Normal left ovary measuring 3.6 x 2.7 x 2.8 cm. No mass. Normal ovarian blood flow on color Doppler. Urinary bladder: Not visualized on this transvaginal study. Intraperitoneal space: A small amount of simple free fluid is present in the posterior cul-de-sac of the pelvis. IMPRESSION: 1. Probable retained products of conception are present within the endometrial cavity. 2. Both ovaries appear normal. 3. A small amount of simple free fluid is present in the posterior pelvic cul-de-sac.
[2025-04-06] MEDS: AMPICILLIN SODIUM/SULBACTAM 3 GM in 0.9 % SODIUM CHLORIDE 100 ML IV (06:39)
[2025-04-06] MEDS: ONDANSETRON 4MG/2ML VIAL 4 MG IV (07:47)
[2025-04-06 07:49] LABS: Microscopic, Urine URINE MICROSCOPIC (MICROSCOPIC)
[2025-04-06 07:58] LABS: Bilirubin,Urine Negative (Negative); Color,Urine YELLOW (Yellow); Glucose,Urine (UA) Negative (Negative); Ketones,Urine 1+ (Negative); Leukocyte Esterase,Urine Negative (Negative); PH,Urine 7.0 (5.0-8.5); Protein,Urine 1+ (Negative); Specific Gravity, Urine 1.025 (1.005-1.030); Urobilinogen,Urine 0.2 EU/dl (0.2)
[2025-04-06 08:21] LABS: Bacteria,Urine Trace /lpf; WBC,Urine Occasional #/hpf (0-3)
--- NOTE | 2025-04-06 09:32 | PC.NURSE ---
Had OB paged to call the ER and speak with Dr Valle
--- NOTE | 2025-04-06 09:58 | PC.NURSE ---
Contacted R Programmer r/t Surgery plan. Contacted OR r/t surgery plan.
--- NOTE | 2025-04-06 09:58 | PC.NURSE ---
Dr Castro called back and was speaking with Dr Valle. Patient would be going for a D&C but not til noon
--- NOTE | 2025-04-06 10:31 | PC.NURSE ---
Lab at bedside obtaining Type and screen
--- NOTE | 2025-04-06 11:11 | PC.NURSE ---
surgery staff here to get pt
--- NOTE | 2025-04-06 11:28 | P.HP_ITS ---
History of Present Illness *Admission Date: 04/06/25 *Reason for visit:: Vaginal bleeding and retained products of conception post . *History of present illness: 24-year-old female with history of recent procedural on in [place] presents for worsening pelvic pain. She reports it comes in waves and is more severe than any pain that she has had before. She reports that she had a fever with a temp of 100.2 at home and had another bout but she felt feverish but did not check her temperature. She reports that she has been having vaginal bleeding about the level of her., Denies any other vaginal discharge or odor. Denies any urinary symptoms. Reports that she has been having normal bowel movements. An ultrasound shows that she has retained products of conception. [facility] Disclaimer: The information contained in this section may have been updated after the patient was seen, as this information can be updated by other users. Medical History Pilonidal cyst Migraine Hypertension Depression Anxiety Urinary tract infection Surgical History History of dilatation and curettage No significant past surgical history History of tonsillectomy Social History Smoking Status: Current every day smoker alcohol intake: current substance use type: marijuana current occupational status: student Travel in the last 8 weeks?: None household members: family housing: house Have you lived/traveled outside US in past 30 days?: No Contact w/someone who lives/traveled outside US past 30 days?: No Exposure to someone with infectious disease in past 14 days?: No Do you have a fever (greater than 100.4 F or 38 C)?: No Have you tested positive for COVID-19?: No Exposed to someone with COVID-19 in past 14 days?: No Do you have a sore throat?: No Do you have a cough?: No Do you have any weakness?: No Do you have any diarrhea?: No Are you experiencing any unusual bleeding?: No Do you have any muscle aches/pain?: No Do you have any abdominal pain?: Yes Are you experiencing loss of taste or smell?: No Other Medical History Have you received the Flu Vaccine for this season: No Have you received the Pneumonia Vaccine: No Review of Systems Review of Systems Review of systems:: pertinent systems reviewed and negative unless documented below Meds Home Medications and Allergies Home Medications ?Medication ?Instructions ?Recorded ?Confirmed ?Type amoxicillin 875 mg-potassium 1 tab PO BID 7 days #14 t abs 04/06/25 Rx clavulanate 125 mg tablet lidocaine 5 % topical patch 1 patch topical DAILY PRN pain #30 04/06/25 Rx ea methocarbamol 500 mg tablet 1,000 mg (2 x 500 mg) PO Q 6H PRN 04/06/25 Rx pain #30 tabs promethazine 25 mg tablet 25 mg PO Q6H PRN nausea and 04/06/25 Rx vomiting #20 tabs New Prescriptions to Start Prescriptions: amoxicillin-pot clavulanate [facility] lidocaine [facility] methocarbamol [facility] promethazine [facility] Allergies Allergy/AdvReac Type Severity Reaction Status Date / Time No Known Allergies Allergy Verified 04/06/25 05:51 Exam Data for Last 24 hours Vital signs and Labs for Last 24 Hours: Temp Pulse Resp BP Pulse Ox O2 Del Method 98.4 F 57 L 16 116/69 100 Room Air 04/06/25 11:09 04/06/25 11:09 04/06/25 11:09 04/06/25 11:09 04/06/25 10:13 04/06/25 11:09 Laboratory Results - last 24 hr 04/06/25 05:50: WBC 10.0, RBC 4.22, Hgb 13.3, Hct 37.9, MCV 89.8, MCH 31.5 H, MCHC 35.1, RDW 12.4, Plt Count 291, MPV 10.6 H, Neut % (Auto) 89.8 H, Lymph % (Auto) 8.4 L, Dunn % (Auto) 1.4 L, Eos % (Auto) 0.0 L, Baso % (Auto) 0.2, Neut # (Auto) 8.9 H, Lymph # (Auto) 0.8, Dunn # (Auto) 0.1, Eos # (Auto) 0.0, Baso # (Auto) 0.0, Sodium 137, Potassium 3.7, Chloride 106, Carbon Dioxide 23, Anion Gap 11.7, BUN 8, Creatinine 0.50 L, Estimated Creat Clear 251, Estimated GFR 154, Est GFR ( Amer) 187, Glucose 141 H, Calcium 9.4, Total Bilirubin 0.8, AST 35, ALT 40, Alkaline Phosphatase 67, Total Protein 7.6, Albumin 4.7, Globulin 2.9, Albumin/Globulin Ratio 1.6 04/06/25 07:45: Urine Color Yellow, Urine Appearance Sl cloudy, Urine pH 7.0, Ur Specific [place] 1.025, Urine Protein 1+ A, Urine Glucose (UA) Negative, Urine Ketones 1+, Urine Blood 3+ A, Urine Nitrate Negative, Urine Bilirubin Negative, Urine Urobilinogen 0.2, Ur Leukocyte Esterase Negative, Urine RBC 5-10, Urine WBC Occasional, Ur Squamous Epith Cells 3-5, Urine Bacteria Trace 04/06/25 10:30: Blood Type O Positive, Antibody Screen Negative I & O for Last 24 hours: Intake & Output 04/03/25 04/04/25 04/05/25 04/06/25 11:59 11:59 11:59 11:59 Weight 199 lb Constitutional Constitutional: no acute distress *Routine HEENT Exam Head: Present normocephalic Eye: Present EOMI and PERRL ENT: Present mucous membranes moist *Routine Neck Exam Neck: Present supple; Absent lymphadenopathy *Routine Respiratory Exam Respiratory: Present CTA bilaterally and normal respiratory effort; Absent accessory muscle use *Routine Cardiovascular Exam Cardiovascular: Present RRR *Routine Abdominal Exam Abdominal: Present soft and normoactive bowel sounds; Absent tenderness *Routine Rectal Exam Rectal:: deferred *Routine Genitalia Exam Genitalia:: deferred *Routine Extremities Exam Extremities: Absent cyanosis, clubbing or edema *Routine Skin Exam Skin: Present warm; Absent rash *Routine Neurological Exam Neurological: Present alert and oriented X3 Assessment and Plan *Assessment and plan (1) IUD failure, : Status: Acute Category: Medical Code(s): T83.31XA - Breakdown (mechanical) of intrauterine contraceptive device, initial encounter; Z33.1 - state, incidental (2) Retained products of conception following : Status: Acute Category: Medical Code(s): O03.4 - Incomplete spontaneous without complication Plan 1. She has retained products of conception post confirmed with ultrasound. 2. We will go ahead with a dilation and evacuation with Graves suction. 3. We discussed the risk of surgery that includes bleeding, infection, injury to adjacent structures. We discussed the rare risk of perforation. All questions were answered and consents were signed.
--- NOTE | 2025-04-06 11:37 | EXP.ANES.CKL ---
[facility] Disclaimer: The information contained in this section may have been updated after the patient was seen, as this information can be updated by other users. Medical History Pilonidal cyst Migraine Hypertension Depression Anxiety Urinary tract infection Surgical History History of dilatation and curettage No significant past surgical history History of tonsillectomy Social History Smoking Status: Current every day smoker alcohol intake: current substance use type: marijuana current occupational status: student Travel in the last 8 weeks?: None household members: family housing: house Have you lived/traveled outside US in past 30 days?: No Contact w/someone who lives/traveled outside US past 30 days?: No Exposure to someone with infectious disease in past 14 days?: No Do you have a fever (greater than 100.4 F or 38 C)?: No Have you tested positive for COVID-19?: No Exposed to someone with COVID-19 in past 14 days?: No Do you have a sore throat?: No Do you have a cough?: No Do you have any weakness?: No Do you have any diarrhea?: No Are you experiencing any unusual bleeding?: No Do you have any muscle aches/pain?: No Do you have any abdominal pain?: Yes Are you experiencing loss of taste or smell?: No [facility] Anesthesia Checklist Patient Identification Patient Identification: Arm Band and Verbal (Name & ) Structural Data Admitted From: Home Planned Operative Procedure/s: D&C Verified Documents: Surgical Consent NPO Status Verified Time NPO: 00:00 Chart Verification Results Verified: None Additional verifications Anesthesia Reactions: No Hx Blood Transfusions: No Airway Assessment Mallampati Score:: Class I C-Spine Mobility Assessed: Yes TMJ Mobility Assessed: Yes Dentition: Good Dentition Neurological Assessment Level of Consciousness: Awake, Alert and Appropriate Hx Seizures: No Numbness or tingling in extremities: No Anesthesia Plan Anesthesia Risk discussed: Yes Anesthesia Plan: Patient unable to respond/answer ASA Class: II Anesthesia Type: General
--- NOTE | 2025-04-06 12:19 | P.PNANES_ITS ---
[facility] Anesthesia Record Part I Anesthesia Record I Intake, IV Amount: 300 Hydration: Adequate Estimated blood loss (mL): 0 Urine output (mL): 0 Blood Products used (#): none Blood Pressure: 130/70 SaO2: 98 Pulse Rate: 51 Airway Patency: Patent Respiratory Rate: 20 Temperature: 97.0 F Patient is:: Stable and Somnolent Stable to PACU at:: 12:17
--- NOTE | 2025-04-06 15:18 | EXP.OP.NOTE ---
Date of procedure: 04/06/25 Pre-op Diagnosis:: Retained products of conception Post-op Diagnosis:: Retained products of conception Procedure performed:: Dilation and evacuation with Gratiot suction Surgeon:: Arie Castro MD [employer] ARCHITECT:: Ronlad Us Anesthesia: LMA Estimated blood loss (mL): 25 Clinical Note:: She is a 24-year-old lady who had an out of state last week. She began having bleeding and cramping. She also had a low-grade temperature at home. As result of that she came into the ER. An ultrasound confirmed that she had retained products of conception and as result of that was offered dilation and evacuation with Ashu suction. The risks and benefits of surgery were discussed with the patient prior to surgery. Operative findings:: She had an anteverted bulky uterus. There was significant amount of tissue that was recovered at the time of her evacuation. Operative note:: She was taken the operating room where LMA anesthesia was found to be adequate. She was prepped and draped in normal sterile fashion in the lithotomy position. A weighted speculum was placed in the vagina and the anterior lip of the cervix was grasped with a tenaculum. Elkins dilators were used to dilate the cervix to approximately 1 cm. Then using a 10 mm curved Gratiot suction curette I evacuated the uterine contents. This was followed by gentle curettage. She tolerated the procedure well and was taken to the recovery room in excellent condition. All sponge, instrument counts were correct. The estimated blood loss was less than 25 cc's. Condition: stable Disposition: PACU Specimens:: Retained products of conception Complications:: None
--- NOTE | 2025-04-06 15:36 | EXP.ANES.II ---
[facility] Anesthesia Record Part II Anesthesia Record Part II Discharge Time: 13:18 Destination: Surgical Day Care (OP Surgery) PACU nurse assessment reviewed?: Yes Patient Condition:: Good Anesthesia Complications:: None Swallowing reflex intact?: Yes Airway Patency: Patent Cyanosis?: No Blood Pressure: 134/74 SaO2: 100 Respiratory Rate: 18 Pulse Rate: 64 Temperature: 97.0 F Mental Status: Alert & Oriented Pain level:: 0 Nausea and/or vomitting:: None Intake, IV Amount: 0 Hydration: Adequate
== END 2025-04-06 13:25 | disposition home or self-care (01) ==
LOC: ER 10:58 → SDC 11:41
PROVIDERS: Emergency Medicine; Emergency Provider Student in an Organized Health Care Education/Training Program; PCP Family Medicine; Visit Provider Nurse Practitioner Obstetrics & Gynecology
PROC: (CPT 59812; principal; 2025-04-06 12:30)
DX: O03.4 Incomplete spontaneous abortion without complication (principal); T83.31XA Breakdown (mechanical) of intrauterine contraceptive device, initial encounter; Y76.1 Therapeutic (nonsurgical) and rehabilitative obstetric and gynecological devices associated with adverse incidents; F17.200 Nicotine dependence, unspecified, uncomplicated
CPT/HCPCS: 59812; 36415; 76830; 80053; 81001; 85025; 86850; J0295; J1100; J1885; J2003; J2250; J2270; J2405; J2550; J2704; J3010; J7120